=== PATIENT | female | born 1945 | race Caucasian/White ===

== ENCOUNTER → 2017-06-14 16:02 | Outpatient (CLI) | payer BC, MEDICARE, SELFPAY ==
--- NOTE | 2017-06-14 16:20 | RAD_ITS ---
STUDY: X-RAY CHEST REASON FOR EXAM: Female, 72 years old. Cough. TECHNIQUE: PA and lateral views of the chest. COMPARISON: Comparison is made with prior study dated November 23, 2016. FINDINGS: Stable 1.3 cm calcified granuloma in the superior segment of the right lower lobe. There is no demonstrated pleural abnormality. Normal size heart. Normal mediastinum and basilia. Normal visualized pulmonary arteries. There is atherosclerotic calcification of the aortic arch with tortuosity. There are degenerative changes of the visualized thoracic spine. [place] clip is seen overlying the left humeral head in keeping with prior rotator cuff surgery. There is no demonstrated abnormality of the visualized soft tissue structures of the upper abdomen. RAD/Chest PA and Lateral IMPRESSION: Stable examination. Electronically Signed: Garret Lao MD at 12:45 EDT Tel [phone], Service support ,
== END ==
PROVIDERS: Family Provider Family Medicine Geriatric Medicine; PCP Family Medicine Geriatric Medicine; Visit Provider Family Medicine Geriatric Medicine
DX: R05 Cough (principal); R68.83 Chills (without fever)
CPT/HCPCS: 71046; 87633

== ENCOUNTER → 2017-07-31 09:49 | Outpatient (CLI) | payer BC, MEDICARE, SELFPAY ==
--- NOTE | 2017-07-31 09:54 | ECHOD_ITS ---
Reason For Study: MITRAL INSUFFICENCY Procedure This was a 2D Doppler, Color Flow transthoracic echocardiogram. Contrast injection was performed. Exam performed in department. Left Ventricle Normal LV size. The estimated ejection fraction is 60 %. Left ventricular systolic function is normal. No evidence for diastolic dysfunction. No regional wall motion abnormalities noted. Right Ventricle Normal RV size. Normal systolic function. Atria Normal left atrium. Normal right atrium. Mitral Valve Mild diffuse mitral valve thickening. Mild (1+) eccentric mitral valve insufficiency. Tricuspid Valve Normal tricuspid valve. Mild to moderate (1-2+) tricuspid valve insufficiency. Pulmonary artery systolic pressure is 28 mmHg. Aortic Valve Trisinus/trileaflet aortic valve. Pulmonic Valve Normal pulmonic valve. Great Vessels Normal aortic root. The pulmonary artery is normal size. Normal inferior vena cava. Pericardium/Pleural No pericardial effusion. Medication 22 gauge I.V. with prn adaptor inserted into right arm. Diluted definity 3ml given slow IV push to enhance endocardial definition. MMode/2D Measurements & Calculations LVIDd: 5.0 cm IVSd: 0.81 cm Ao root diam: 3.0 cm LVIDs: 3.5 cm LVPWd: 0.90 cm FS: 30.6 % LAV(MOD-bp): 56.1 ml LVAd ap4: 29.4 cm2 SV(MOD-sp4): 65.5 ml LAV(MOD-bp) Indexed: 32.2 ml/m2 EDV(MOD-sp4): 93.8 ml LAV(MOD-sp2): 61.4 ml EDV(sp4-el): 94.2 ml LAV(MOD-sp4): 50.9 ml LVAs ap4: 14.3 cm2 ESV(MOD-sp4): 28.4 ml ESV(sp4-el): 28.4 ml EF(MOD-sp4): 69.7 % EF(sp4-el): 69.9 % SV(sp4-el): 65.8 ml LA A4 area: 19.7 cm2 RA A4 area: 14.6 cm2 Doppler Measurements & Calculations MV E max kane: 70.4 cm/sec Lat Peak E' Kane: 8.7 cm/sec Med Peak E' Kane: 6.3 cm/sec MV A max kane: 61.8 cm/sec E/E' lat: 8.1 E/E' med: 11.2 MV E/A: 1.1 Ao V2 max: 129.1 cm/sec LV V1 max: 109.8 cm/sec PA V2 max: 77.9 cm/sec Ao max P.7 mmHg LV V1 max P.8 mmHg TR max kane: 252.5 cm/sec TR max P.5 mmHg Interpretation Summary Normal LV size. The estimated ejection fraction is 60 %. Left ventricular systolic function is normal. No evidence for diastolic dysfunction. Mild (1+) eccentric mitral valve insufficiency. Mild to moderate (1-2+) tricuspid valve insufficiency. Contrast injection was performed. Ordering Physician: Nolberto Leblanc Referring Physician: TATI RETANA CHI Performed By: Ernestina Ledezma, ERIKA, RVT
== END ==
PROVIDERS: Family Provider Family Medicine Geriatric Medicine; PCP Family Medicine Geriatric Medicine; Visit Provider Internal Medicine Cardiovascular Disease
DX: I34.0 Nonrheumatic mitral (valve) insufficiency (principal)
CPT/HCPCS: 93306; Q9957; A4216; C8929

== ENCOUNTER → 2017-08-17 16:42 | Outpatient (CLI) | payer BC, MEDICARE, SELFPAY ==
--- NOTE | 2017-08-17 16:42 | DT_ITS ---
This patient was seen during an EMR downtime August 14, 2017 - August 21, 2017. This patient may have a combination of paper and electronic documentation or all paper documentation. All documentation is viewable within the e-chart portion of [facility] for each patient visit.
[2017-08-17 18:10] LABS: BNP,B-Type NATRIURETIC PEPTIDE 137.2 pg/mL (0-100)
== END ==
PROVIDERS: Family Provider Family Medicine Geriatric Medicine; PCP Family Medicine Geriatric Medicine; Visit Provider Internal Medicine Cardiovascular Disease
DX: I34.0 Nonrheumatic mitral (valve) insufficiency (principal); I42.6 Alcoholic cardiomyopathy; I25.10 Atherosclerotic heart disease of native coronary artery without angina pectoris
CPT/HCPCS: 36415; 83880

== ENCOUNTER → 2017-09-08 08:43 | Outpatient (CLI) | payer BC, MEDICARE, SELFPAY ==
[2017-09-08 12:25] LABS: Absolute Neutrophil Count 4.4 X10^3/uL (2.0-7.7); Basophil# 0.02 X10^3/uL; Basophil% 0.3 % (0-1); Eosinophil# 0.12 X10^3/uL; Eosinophils% 1.8 % (0-5); Hematocrit 41.5 % (37-47); Hemoglobin 13.7 g/dl (12.0-15.0); Lymphocyte % 22.7 % (19-41); Mean Corpuscular Hgb 29.9 pg (27.0-32.0); Mean Corpuscular Volume 90.6 fL (81-99); Mean Platelet Vol. 10.4 fl (6.2-12.0); Monocyte# 0.55 X10^3/uL; Monocyte% 8.3 % (0-10); Neutrophil # 4.42 X10^3/uL (2.7-7.7); Neutrophil % 66.9 % (47-70); Platelet Count 288 K/mm3 (150-450); RBC Distribution Width CV 13.1 % (11.6-14.6); RBC Distribution Width SD 43.4 fl (35.1-43.9); Red Blood Count 4.58 M/mm3 (4.2-5.4); White Blood Count 6.6 K/mm3 (4.4-11.0)
[2017-09-08 12:29] LABS: POSITIVE COUNT NO; POSITIVE DIFFERENTIAL NO; POSITIVE MORPHOLOGY NO
[2017-09-08 12:52] LABS: AST(SGOT) 23 U/L (15-37); Alanine Aminotransfer ALT/SGPT 19 U/L (13-56); Albumin, Serum 3.4 g/dL (3.2-5.0); Alkaline Phosphatase 80 U/L (45-117); Anion Gap 5 (5-15); BUN 21 mg/dL (7-18); BUN/Creat Ratio 18.1 RATIO (10-20); Calcium,Total 9.3 mg/dL (8.5-10.1); Chloride 104 mmol/L (98-107); Creatinine, Serum 1.16 mg/dL (0.55-1.02); EST Glomerular Filtration Rate 49 mL/min (>60); Est Glom Filt Rate - Afr Amer 59 mL/min (>60); Globulin 3.4 g/dL (2.2-4.2); Glucose 116 mg/dL (74-106); Potassium 4.1 mmol/L (3.5-5.1); Protein, Total 6.8 g/dL (6.4-8.2); Sodium Level 141 mmol/L (136-145); Thyroid Stim Hormone (TSH) 1.08 uIU/mL (0.358-3.74)
== END ==
PROVIDERS: Family Provider Family Medicine Geriatric Medicine; PCP Family Medicine Geriatric Medicine; Visit Provider Family Medicine Geriatric Medicine
DX: E55.9 Vitamin D deficiency, unspecified (principal); I10 Essential (primary) hypertension
CPT/HCPCS: 36415; 80053; 82306; 84443; 85025

== ENCOUNTER → 2018-01-04 12:00 | Outpatient (CLI) | payer MEDICARE, SELFPAY ==
[2018-01-04 13:54] LABS: Absolute Lymphocyte Count 1.84 X10^3/ul (0.83-4.51); Absolute Neutrophil Count 4.6 X10^3/uL (2.0-7.7); Basophil# 0.02 X10^3/uL; Basophil% 0.3 % (0-1); Eosinophil# 0.15 X10^3/uL; Eosinophils% 2.1 % (0-5); Hematocrit 43.1 % (37-47); Hemoglobin 13.6 g/dl (12.0-15.0); Lymphocyte # 1.84 X10^3/ul (4.0); Lymphocyte % 25.2 % (19-41); Mean Corp Hgb Conc 31.6 g/gl (32-36); Mean Corpuscular Hgb 28.9 pg (27.0-32.0); Mean Corpuscular Volume 91.7 fL (81-99); Mean Platelet Vol. 10.4 fl (6.2-12.0); Monocyte# 0.66 X10^3/uL; Neutrophil # 4.62 X10^3/uL (2.7-7.7); Neutrophil % 63.3 % (47-70); POSITIVE COUNT NO; POSITIVE DIFFERENTIAL NO; POSITIVE MORPHOLOGY NO; Platelet Count 276 K/mm3 (150-450); RBC Distribution Width CV 12.5 % (11.6-14.6); RBC Distribution Width SD 42.3 fl (35.1-43.9); White Blood Count 7.3 K/mm3 (4.4-11.0)
[2018-01-04 14:11] LABS: Anion Gap 9 (5-15); BUN 22 mg/dL (7-18); BUN/Creat Ratio 18.5 RATIO (10-20); Calcium,Total 9.3 mg/dL (8.5-10.1); Chloride 100 mmol/L (98-107); Creatinine, Serum 1.19 mg/dL (0.55-1.02); EST Glomerular Filtration Rate 48 mL/min (>60); Est Glom Filt Rate - Afr Amer 58 mL/min (>60); Glucose 104 mg/dL (74-106); Potassium 3.9 mmol/L (3.5-5.1); Sodium Level 142 mmol/L (136-145)
== END ==
PROVIDERS: Family Provider Family Medicine Geriatric Medicine; PCP Family Medicine Geriatric Medicine; Visit Provider Family Medicine Geriatric Medicine
DX: I10 Essential (primary) hypertension (principal); N39.0 Urinary tract infection, site not specified
CPT/HCPCS: 36415; 80048; 85025; 87086; 87088

== ENCOUNTER → 2018-02-12 09:59 | Outpatient (CLI) | payer MEDICARE, SELFPAY ==
--- OUTSIDE RECORDS SUMMARY | 2018-04-07 15:04 | XMS RPT_ITS ---
:1945 Author Organization OHIP Support Name Relationship Address Phone [facility] Unavailable [phone] + [place] [address] KATE HURTADO Unavailable CENTER + [place] [address] [address] + [place] [address] [facility] Unavailable [address] + [place] [address] [address]ATE HURTADO [address] + [place] [address] [facility] Unavailable [address] + [place] [address] KATE HURTADO [address] + [place] [address] [facility] Unavailable [address] + [place] [address] KATE HURTADO [address] + [place] [address] [facility] Unavailable [address] + [place] [address] KATE HURTADO [address] + [place] [address] [facility] Unavailable [address] + [place] [address] KATE HURTADO [address] + [place] [address] [facility] Unavailable [address] + [place] [address] KATE HURTADO Un[address] + [place] [address] [facility] Unavailable [address] [facility] + [place] [address] BRYANT KATE Unavailable Unavailable Unavailable NALLELY HURTADOAN Unavailable Unavailable Unavailable BRYANT KATE Unavailable Unavailable Unavailable BRYANT, CARMITA Unavailable Unavailable Unavailable BRYANT KATE Unavailable [address] + [place] [address] [facility] Unavailable [address] [facility] [facility] + [place] [address] [address] KATE [address] + [place] [address] [facility] Unavailable [address] [facility] [facility] + [facility] [place] [address] BRYANT KATE [address] + [place] [address] [facility] Unavailable [address] + [place] [address] Care Team Providers Name Role Phone MAZIN, TATI-CHI Attending Unavailable MAZIN, TATI-CHI Referring Unavailable MAZIN, TATI-CHI Primary Care Unavailable PRINCE HADLEY Attending Unavailable MAZIN, TATI-CHI Referring Unavailable MAZIN, TATI-CHI Primary Care Unavailable Mazin, Tati Chi Attending Unavailable Mazin, Tati Chi Primary Care Unavailable Mazin, Tati Chi Attending Unavailable Mazin, Tati Chi Primary Care Unavailable Mazin, Tati Chi Attending Unavailable Mazin, Tati Chi Primary Care Unavailable Benji, Nolberto Attending Unavailable Benji, [place] Referring Unavailable Mazin, Tati Chi Primary Care Unavailable Benji, Nolberto Attending Unavailable Benji, [place] Referring Unavailable Mazin, Tati Chi Primary Care Unavailable Benji, [place] Attending Unavailable Benji, [place] Referring Unavailable Benji, Nolberto Attending Unavailable Mazin, Tati Chi Referring Unavailable Mazin, Tati Chi Primary Care Unavailable Mazin, Tati Chi Attending Unavailable Mazin, Tati Chi Primary Care Unavailable Stuart Dickey Attending Unavailable Mazin, Tati Chi Referring Unavailable Mazin, Tati Chi Primary Care Unavailable Mazin, Tati Chi Attending Unavailable Mazin, Tati Chi Primary Care Unavailable Mazin, Tati Chi Attending Unavailable Mazin, Tati Chi Referring Unavailable Mazin, Tati Chi Primary Care Unavailable PROBLEMS PROBLEMS DATE TYPE CONDITION / CODE ATTENDING STATUS SOURCE Unknown R68.83 - Chills (without Mazin, Tati Chi Active [facility] fever) / R68.83(ICD-10) [facility] Rep[facility] Unknown I10 - Essential (primary) Mazin, Tati Chi Active [facility] hypertension / Community I10(ICD-10) Hospital Repository Unknown N39.0 - Urinary tract Mazin, Tati Chi Active [facility] infection, site not Community specified / N39.0(ICD-10) Hospital Repository Unknown E55.9 - Vitamin D Mazin, Tati Chi Active [place] deficiency, unspecified / Community E55.9(ICD-10) Hospital Repository Unknown I34.0 - Nonrheumatic Benji, [place] Active [place] 8 mitral (valve) Community insufficiency / Hospital I34.0(ICD-10) Repository Unknown I25.10 - Atherosclerotic Benji, [place] Active [place] [address] [facility] Community coronary artery without Hospital angina pectoris / Repository I25.10(ICD-10) Unknown E78.00 - Pure Benji, [place] Active [facility] hypercholesterolemia, Community unspecified / Hospital E78.00(ICD-10) Repository Unknown E78.0 - Pure Benji, Nolberto Active [place] 8 hypercholesterolemia / Community E78.0(ICD-10) Hospital Repository Admitting Diffuse cystic mastopathy HADLEYPRINCE GARZA Active [place] [address] diagnosis of right breast / [facility] N60.11(ICD-10) [facility] Repository Admitting Encounter for screening MAZIN, TATI-CHI Active [facility] 8 diagnosis mammogram for malignant University neoplasm of breast / [facility] Z12.31(ICD-10) Center Repository Unknown R50.9 - Fever, Mazin, Tati Chi Active [place] 8 unspecified / Community R50.9(ICD-10) Hospital Repository Unknown Z13.89 - Encounter for Mazin, Tati Chi Active [facility] screening for other Community disorder / Z13.89(ICD-10) Hospital Repository PROCEDURES PROCEDURES No Procedure Records FoundRESULTS RESULTS Observed: 02/12/2018 Status: F Source: [place] RESPIRATORY PANEL 10:19 AM [facility] MOLECULAR REPOSITORY RP PANEL ADENOVIRUS Not Detected HUMAN METAPHNEUMO Not Detected INFLUENZA A Not Detected INFLUENZA A (SUBTYPE H1) Not Detected INFLUENZA A (SUBTYPE H3) Not Detected INFLUENZA B Not Detected PARAINFLUENZA 1 Not Detected PARAINFLUENZA 2 Not Detected PARAINFLUENZA 3 Not Detected PARAINFLUENZA 4 Not Detected RHINOVIRUS Not Detected RSV A Not Detected RSV B Not Detected NAAT METHOD Testing was performed using nucleic acid amplification Performed By: #### M100.638 #### [facility] [address] [place], [address] Observed: 01/04/2018 Status: F Source: [place] CULTURE, URINE 12:08 PM [facility] REPOSITORY Urine Culture Below infection level. ORGANISM 1: Mixed Gram Positive Organisms Astor Count 1000-10,000 Performed By: #### M100.0650 #### [facility] [address] [facility] [place], [address] CBC W/DIFF, AUTOMATED Collected: 01/04/2018 Status: F Source: [place] 12:02 PM [facility] REPOSITORY TYPE CODE TESTS RESULT OUT OF RANGE REFERENCE UNITS LAB L100.1000 4.4-11.0 K/mm3 Normal WBC 7.3 LAB L100.1200 4.2-5.4 M/mm3 Normal RBC 4.70 LAB L100.1300 12.0-15.0 g/dl Normal HGB 13.6 LAB L100.1400 37-47 % Normal HCT 43.1 LAB L100.1500 81-99 fL Normal MCV 91.7 LAB L100.1600 27.0-32.0 pg Normal MCH 28.9 LAB L100.1700 32-36 g/gl Low MCHC 31.6 LAB L100.1810 11.6-14.6 % Normal RDW CV 12.5 LAB L100.1820 35.1-43.9 fl Normal RDW SD 42.3 LAB L100.1900 150-450 K/mm3 Normal PLT 276 LAB L100.2000 6.2-12.0 fl Normal MPV 10.4 LAB L100.2100 47-70 % Normal NEUT% 63.3 LAB L100.2200 19-41 % Normal LY% 25.2 LAB L100.2300 0-10 % Normal MONO% 9.0 LAB L100.2400 0-5 % Normal EO% 2.1 LAB L100.2500 0-1 % Normal BASO% 0.3 LAB L100.2550 0.0-0.9 % Normal IM GRAN % 0.100 Result Comment: IG% - Immature Granulocytes (promyelocytes, myelocytes and metamyelocytes) > 1% indicates that a LEFT SHIFT is Present. LAB L100.2620 2.0-7.7 X10 3/uL Normal Absolute Neut 4.6 LAB L100.2720 0.83-4.51 X10 3/ul Normal Absolute Lymph 1.84 Performed By: #### L100.0100 #### [facility] [address] [place], [address] BASIC METABOLIC Collected: 01/04/2018 Status: F Source: [place] PROFILE (BMP) 12:02 PM [facility] REPOSITORY TYPE CODE TESTS RESULT OUT OF RANGE REFERENCE UNITS LAB L501.0100 74-106 mg/dL Normal GLU 104 Result Comment: Fasting Glucose result from 100 to 125 mg/dL suggests IMPAIRED HOMEOSTASIS per A.D.A. criteria. Please note revised GLUCOSE reference range effective 2017. LAB L501.1000 7-18 mg/dL High BUN 22 LAB L501.1100 0.55-1.02 mg/dL High CREAT,SERUM 1.19 Result Comment: The validity of the calculated GFR AND GFRAA in patients over 70 years has not been determined. Clinical correlation is essential. LAB L501.1110 >60 mL/min Low EST GFR 48 Result Comment: Non- GFR Calc LAB L501.1115 >60 mL/min Low EST GFR - AA 58 Result Comment: GFR Calc LAB L501.1300 10-20 RATIO Normal BUN/CRE 18.5 LAB L501.2200 8.5-10.1 mg/dL CA Normal 9.3 LAB L501.5300 136-145 mmol/L NA Normal 142 LAB L501.5600 3.5-5.1 mmol/L K Normal 3.9 LAB L501.5900 98-107 mmol/L CL Normal 100 LAB L501.6100 21.0-32.0 mmol/L High CO2 33.0 LAB L501.6200 5-15 Normal GAP 9 Performed By: #### L500.2500 #### [facility] [address] [facility] [place], [place], [id number] CBC W/DIFF, AUTOMATED Collected: 09/08/2017 Status: F Source: [place] 11:10 AM [facility] REPOSITORY TYPE CODE TESTS RESULT OUT OF RANGE REFERENCE UNITS LAB L100.1000 4.4-11.0 K/mm3 Normal WBC 6.6 LAB L100.1200 4.2-5.4 M/mm3 Normal RBC 4.58 LAB L100.1300 12.0-15.0 g/dl Normal HGB 13.7 LAB L100.1400 37-47 % Normal HCT 41.5 LAB L100.1500 81-99 fL Normal MCV 90.6 LAB L100.1600 27.0-32.0 pg Normal MCH 29.9 LAB L100.1700 32-36 g/gl Normal MCHC 33.0 LAB L100.1810 11.6-14.6 % Normal RDW CV 13.1 LAB L100.1820 35.1-43.9 fl Normal RDW SD 43.4 LAB L100.1900 150-450 K/mm3 Normal PLT 288 LAB L100.2000 6.2-12.0 fl Normal MPV 10.4 LAB L100.2100 47-70 % Normal NEUT% 66.9 LAB L100.2200 19-41 % Normal LY% 22.7 LAB L100.2300 0-10 % Normal MONO% 8.3 LAB L100.2400 0-5 % Normal EO% 1.8 LAB L100.2500 0-1 % Normal BASO% 0.3 LAB L100.2550 0.0-0.9 % Normal IM GRAN % 0.000 Result Comment: IG% - Immature Granulocytes (promyelocytes, myelocytes and metamyelocytes) > 1% indicates that a LEFT SHIFT is Present. LAB L100.2620 2.0-7.7 X10 3/uL Normal Absolute Neut 4.4 LAB L100.2720 0.83-4.51 X10 3/ul Normal Absolute Lymph 1.50 Performed By: #### L100.0100 #### [facility] [address] [place], [address] VITAMIN D,25 HYDROXY Collected: 09/08/2017 Status: F Source: [place] 11:10 AM [facility] REPOSITORY TYPE CODE TESTS RESULT OUT OF RANGE REFERENCE UNITS LAB L506.1000 29.95-100.01 ng/mL Normal Vitamin D 33.0 25-OH Result Comment: Vitamin D 25(OH) Status Range Deficiency <20 ng/mL (50nmol/L) Insuffciency 20 - 30 ng/mL (50 - 75 nmol/L) Sufficiency 30 - 100 ng/mL (75 - 250 nmol/L) Toxicity >100 ng/mL (>250 nmol/L) Performed By: #### L506.1000 #### [facility] [address] [place], [address] COMPREHENSIVE METABOLIC Collected: 09/08/2017 Status: F Source: [place] [facility] 11:10 AM [facility] REPOSITORY TYPE CODE TESTS RESULT OUT OF RANGE REFERENCE UNITS LAB L501.0100 74-106 mg/dL High GLU 116 Result Comment: Fasting Glucose result from 100 to 125 mg/dL suggests IMPAIRED HOMEOSTASIS per A.D.A. criteria. Please note revised GLUCOSE reference range effective 2017. LAB L501.1000 7-18 mg/dL High BUN 21 LAB L501.1100 0.55-1.02 mg/dL High CREAT,SERUM 1.16 Result Comment: The validity of the calculated GFR AND GFRAA in patients over 70 years has not been determined. Clinical correlation is essential. LAB L501.1110 >60 mL/min Low EST GFR 49 Result Comment: Non- GFR Calc LAB L501.1115 >60 mL/min Low EST GFR - AA 59 Result Comment: GFR Calc LAB L501.1300 10-20 RATIO Normal BUN/CRE 18.1 LAB L501.1500 6.4-8.2 g/dL T Normal PROT 6.8 LAB L501.1800 3.2-5.0 g/dL Normal ALB 3.4 LAB L501.1950 2.2-4.2 g/dL Normal GLOB 3.4 LAB L501.2000 0.9-2.4 RATIO Normal A/G 1.0 LAB L501.2200 8.5-10.1 mg/dL CA Normal 9.3 LAB L501.4100 15-37 U/L Normal AST 23 LAB L501.4305 45-117 U/L Normal ALK P 80 LAB L501.4405 13-56 U/L Normal ALT 19 LAB L501.4600 0.20-1.00 mg/dL T Normal BILI 0.50 LAB L501.5300 136-145 mmol/L NA Normal 141 LAB L501.5600 3.5-5.1 mmol/L K Normal 4.1 LAB L501.5900 98-107 mmol/L CL Normal 104 LAB L501.6100 21.0-32.0 mmol/L Normal CO2 32.0 LAB L501.6200 5-15 Normal GAP 5 Performed By: #### L500.4050, L501.9520 #### [facility] [address] [place], [address] THYROID STIM HORMONE Collected: 09/08/2017 Status: F Source: [place] (TSH) 11:10 AM [facility] REPOSITORY TYPE CODE TESTS RESULT OUT OF RANGE REFERENCE UNITS LAB 01.9520 0.358-3.74 uIU/mL Normal TSH 1.08 Performed By: #### L500.4050, L501.9520 #### [facility] [address] [place], [address] DOWNTIME REPORT Observed: 08/31/2017 Status: F Source: [place] 2:14 PM [facility] REPOSITORY [facility] Medical Records Department [address] [place] [address] Downtime Report MR#: [id number] Acct: [id number] Name: CARMITA HURTADO Rep #: [id number] : 1945 72 From: Mike Mcqueen PCP: Mazin WONG,Tati Chi Status: REG CLI This patient was seen during an EMR downtime August 14, 2017 - August 21, 2017. This patient may have a combination of paper and electronic documentation or all paper documentation. All documentation is viewable within the e-chart portion of [employer] for each patient visit. CARDIOLOGY VISIT Observed: 08/24/2017 Status: F Source: [place] REPORT 8:35 PM [facility] REPOSITORY [facility] [address] [place] [address] [address] [place] [address] OFFICE VISIT Date of Service: 08/17/17 MR#: [id number] Acct: [id number] Name: CARMITA HURTADO Rep #: [id number] : 1945 Provider: Nolberto Leblanc MD Age/Sex: 72/F Location: [facility] Status: Signed HPI HPI Chief Complaint: Follow-up visits. Details: CARMITA HURTADO, is a 72 F who presents to the office today for a follow-up visit. She is a lady with a history of mono known mitral valve disease who complains of fatigue shortness of breath with activity palpitations occasional pounding in her chest and pain below her shoulder blades. You do remember that as part of her evaluation she underwent a pharmacologic myocardial perfusion stress test but did not demonstrate any evidence of ischemia and echocardiogram was performed which demonstrated preserved ejection fraction of 65% stage II diastolic dysfunction and what appeared to be moderately severe mitral regurgitation. She went on to have a DARLINE which demonstrated mild mitral regurgitation but with multiple jets. Cardiac catheterization performed demonstrated no obstructive coronary disease. She was referred to the [facility] but it was felt that her mitral regurgitation was at most 2-3+ and she did not require surgical therapy medical therapy was recommended. She was placed on medication and has done well since then. More recently she underwent an echocardiographic evaluation which once again demonstrated ejection fraction of 60% normal left ventricular dimensions mild diffuse mitral valve thickening with mild 1+ mitral regurgitation. Her pulmonary systolic pressure was estimated to be 28 mmHg. She has not had any classic angina symptoms and has not had any evidence of atrial fibrillation. Her physical exam today demonstrates clear lung lees regular rate and rhythm is soft 1/6 systolic murmur noted left sternal border and no pedal edema. Her blood pressure is noted to be mildly elevated. Intake Intake Visit Reasons: 6 M FU; discuss echo results (we r/s from 08-10) Allergies sumatriptan [From Imitrex] Allergy (Verified 01/27/14 20:23) Other sumatriptan succinate [From Imitrex] Allergy (Verified 01/27/14 20:23) Other prednisone Adverse Reaction (Verified 11/25/16 15:05) Unknown Medications Albuterol IH (ProAir) [Proair Hfa (SP)Vent Pts] 1 - 2 puff INHALATION Q6H PRN PRN 11/25/16 [History Confirmed 11/25/16] Aspirin E.C. [Ecotrin] 81 mg PO DAILY@0800 11/25/16 [History Confirmed 11/25/16] Duloxetine HCl 90 mg PO BID 11/25/16 [History Confirmed 11/25/16] Lorazepam [Ativan] 0.5 mg PO DAILY PRN PRN 11/25/16 [History Confirmed 11/25/16] Montelukast Sodium [Singulair] 10 mg PO DAILY 11/25/16 [History Confirmed 11/25/16] Primidone [Mysoline] 25 mg PO DAILY 11/25/16 [History Confirmed 11/25/16] Propranolol HCl [Inderal Xl (Beta Ade)] 120 mg PO PRN PRN 11/25/16 [History Confirmed 11/25/16] Rosuvastatin Calcium [Crestor] 40 mg PO QHS 11/25/16 [History Confirmed 11/25/16] traZODone [Desyrel] 100 mg PO DAILY 11/25/16 [History Confirmed 11/25/16] furosemide 40 mg tablet 40 mg PO DAILY #90 tab 03/21/17 [Rx] losartan 25 mg tablet 25 mg PO DAILY #90 tab 03/21/17 [Rx] PFSH Social History Smoking Status: Never smoker ROS Const Const: Positive for fatigue and weakness; negative for headache(s) Eyes Eyes: Negative for blind spots, loss of peripheral vision, transient loss of vision, blurry vision, change in vision, double vision, floaters, tunnel vision or other ENT ENT: Negative for headache(s), dizziness, hearing loss, tinnitus, Nosebleed/epistaxis, post nasal drip, lip swelling, tongue swelling, bleeding gums, hoarseness, neck pain, dry mouth or other Cardio Chest Pain: No Resp Respiratory: Positive for SOB with activity GI GI: Negative nausea, vomiting, heartburn, constipation, belching, bloating, cramping, vomiting blood/hematemesis, bright, red blood in stools, black,tarry stools, loose stools, Difficulty Swallowing or other : Negative for hematuria, frequent nighttime urination/ nocturia, erectile dysfunction or abnormal vaginal bleeding Skin Skin: Negative redness, non-healing lesions, rash, unusual bruising, skin ulcer, wounds, jaundice or other Neuro Neuro: Positive for weakness; negative for blurry vision, double vision, headache(s) or dizziness Endo Endo: Positive for fatigue Allergy Allergy/Immunology: Negative for lip swelling, Negative for tongue swelling, Negative for rash Cardiology Exam Const Appearance: cooperative, healthy appearing, well developed, well groomed and no acute distress Nutritional Appearance: well nourished and average body habitus Orientation: alert, awake and oriented x3 Head Head: normal to inspection, normocephalic and atraumatic Ears: hearing grossly normal bilaterally and external ears normal Nose: external nose normal, nasal mucous membranes and turbinates normal, nares normal, septum normal, no nasal discharge Face and Sinus: face symmetric Mouth: oral mucosae normal, tongue normal, oropharynx normal and moist mucous membranes Teeth and gingiva: dentition normal Throat: posterior oropharynx normal, tonsils normal and uvula midline Eyes General: appearance normal, both eyes and all related structures Eyelids: eyelids normal Conjunctivae: conjunctivae normal Pupils: PERRL, normal by confrontation and accommodation normal EOM: EOM intact bilaterally Neck Neck: normal visual inspection, trachea midline and no JVD JVD: +5 Carotids: normal carotid upstroke and bounding pulses Chest Chest inspection: normal inspection of the chest, symmetric chest movement and normal respiratory effort Auscultation: Bilateral: Clear to Auscultation Cardio Palpation: normal PMI Rate: regular rate Rhythm: regular rhythm Heart sounds: S1 normal and S2 normal Murmur: Grade 1/6 GI GI: normal to inspection, soft, no hepatosplenomegaly and bowel sounds present Neuro General: alert, awake, oriented x3, no focal sensory deficit, gait normal and moves all extremities Skin Skin: no rashes or lesions noted Extremities Pulses: Normal: Right Femoral Pulse, Left Femoral Pulse, Right Dorsalis Pedis Pulse, Left Dorsalis Pedis Pulse, Right Posterior Tibial Pulse, Left Posterior Tibial Pulse, Right Radial Pulse, Left Radial Pulse Lower Extremity Edema: None: Bilateral Musculoskel Musculoskeletal: No joint tenderness Psych Psychological: normal affect Assessment AND Plan 1. Mitral valve insufficiency, unspecified etiology I34.0 Plan She does other movements appear to have mild mitral regurgitation with no evidence of hypertension. At this time I will continue to recommend medical therapy. She does have some nebulous symptoms which are difficult to explain and I will suggest that we make some changes to her medical therapy. I will suggest discontinuing her propranolol and increasing her Lasix to 40 mg twice a day and putting her on Toprol-XL 50 mg once a day. Losartan 50 mg a day will also be added. I will like to see her again in 3 months and reassess her response to the above. If she has had no improvement in her symptoms I may recommend referring her to the [facility] for another opinion regarding the above. 2. Essential hypertension I10 Plan Her blood pressure remains uncontrolled. The losartan has been added to her regimen as well as Toprol and her beta-ade propranolol has been discontinued. Remember she was on this for an intention tremor. Hopefully the Toprol should be able to take care of the above. 3. Coronary artery disease involving [place] coronary artery of [place] heart without angina pectoris I25.10 Plan She does have mild coronary artery disease but I do not think that her symptoms suggestive of angina at this time she will continue with secondary risk factor modification with aspirin and lipid-lowering therapy. 4. Pure hypercholesterolemia E78.00; E78.0 Plan She will remain on high intensity statin. Appropriate lipid profiles will be obtained the appropriate time. Thank you for allowing me to participate in her care. Due to computer issues her past medical history as well as medications were not entered contemporaneously. Plan Detail Follow Up 3 Months (center lead consultant) Coding Level of Care Code Off vis,est,level 4 Diagnoses Mitral valve insufficiency, unspecified etiology I34.0 Cardiac valve disease etiology: etiology unspecified Essential hypertension I10 Hypertension type: essential hypertension Coronary artery disease involving [place] coronary artery of [place] heart without angina pectoris I25.10 Coronary Disease-Associated Artery/Lesion type: [place] artery [place] vs. transplanted heart: [place] heart Associated angina: without angina Pure hypercholesterolemia E78.00; E78.0 Hyperlipidemia type: pure hypercholesterolemia Coding Level of Care Code Off vis,est,level 4 Diagnoses Mitral valve insufficiency, unspecified etiology I34.0 Cardiac valve disease etiology: etiology unspecified Essential hypertension I10 Hypertension type: essential hypertension Coronary artery disease involving [place] coronary artery of [place] heart without angina pectoris I25.10 Coronary Disease-Associated Artery/Lesion type: [place] artery [place] vs. transplanted heart: [place] heart Associated angina: without angina Pure hypercholesterolemia E78.00; E78.0 Hyperlipidemia type: pure hypercholesterolemia 08/24/172034 <Electronically signed by Nolberto Leblanc MD> Date Nolberto Leblanc MD Cosigner Signature: Date (if applicable) CC: Tati Retana MD BNP,B-TYPE NATRIURETIC Collected: 08/17/2017 Status: F Source: [place] 4:45 PM [facility] REPOSITORY TYPE CODE TESTS RESULT OUT OF RANGE REFERENCE UNITS LAB L503.6620 0-100 pg/mL High B-TYPE 137.2 IVONNE PEP Performed By: #### L503.6620 #### [facility] [address] [place], [address] ECHOCARDIOGRAM COMPLETE Observed: 07/31/2017 Status: F Source: [place] 9:11 PM [facility] REPOSITORY [facility] Cardiovascular Services [address] [place] [address] Echo Complete W/ Contrast 07/31/17 1007 MR#: [id number] Acct: [id number] Name: CARMITA HURTADO Rep #: [id number] : 1945 72 From: Nolberto Leblanc MD Attending Dr: Nolberto Leblanc MD Status: REG CLI Ordering Dr: Nolberto Leblanc MD Date: 07/31/17 Location: [facility] Sex: F C Admitted: Reason For Study: MITRAL INSUFFICENCY Procedure This was a 2D Doppler, Color Flow transthoracic echocardiogram. Contrast injection was performed. Exam performed in department. Left Ventricle Normal LV size. The estimated ejection fraction is 60 %. Left ventricular systolic function is normal. No evidence for diastolic dysfunction. No regional wall motion abnormalities noted. Right Ventricle Normal RV size. Normal systolic function. Atria Normal left atrium. Normal right atrium. Mitral Valve Mild diffuse mitral valve thickening. Mild (1+) eccentric mitral valve insufficiency. Tricuspid Valve Normal tricuspid valve. Mild to moderate (1-2+) tricuspid valve insufficiency. Pulmonary artery systolic pressure is 28 mmHg. Aortic Valve Trisinus/trileaflet aortic valve. Pulmonic Valve Normal pulmonic valve. Great Vessels Normal aortic root. The pulmonary artery is normal size. Normal inferior vena cava. Pericardium/Pleural No pericardial effusion. Medication 22 gauge I.V. with prn adaptor inserted into right arm. Diluted definity 3ml given slow IV push to enhance endocardial definition. MMode/2D Measurements AND Calculations LVIDd: 5.0 cm IVSd: 0.81 cm Ao root diam: 3.0 cm LVIDs: 3.5 cm LVPWd: 0.90 cm FS: 30.6 % LAV(MOD-bp): 56.1 ml LVAd ap4: 29.4 cm2 SV(MOD-sp4): 65.5 ml LAV(MOD-bp) Indexed: 32.2 ml/m2 EDV(MOD-sp4): 93.8 ml LAV(MOD-sp2): 61.4 ml EDV(sp4-el): 94.2 ml LAV(MOD-sp4): 50.9 ml LVAs ap4: 14.3 cm2 ESV(MOD-sp4): 28.4 ml ESV(sp4-el): 28.4 ml EF(MOD-sp4): 69.7 % EF(sp4-el): 69.9 % SV(sp4-el): 65.8 ml LA A4 area: 19.7 cm2 RA A4 area: 14.6 cm2 Doppler Measurements AND Calculations MV E max kane: 70.4 cm/sec Lat Peak E' Kane: 8.7 cm/sec Med Peak E' Kane: 6.3 cm/sec MV A max kane: 61.8 cm/sec E/E' lat: 8.1 E/E' med: 11.2 MV E/A: 1.1 Ao V2 max: 129.1 cm/sec LV V1 max: 109.8 cm/sec PA V2 max: 77.9 cm/sec Ao max P.7 mmHg LV V1 max P.8 mmHg TR max kane: 252.5 cm/sec TR max P.5 mmHg Interpretation Summary Normal LV size. The estimated ejection fraction is 60 %. Left ventricular systolic function is normal. No evidence for diastolic dysfunction. Mild (1+) eccentric mitral valve insufficiency. Mild to moderate (1-2+) tricuspid valve insufficiency. Contrast injection was performed. Ordering Physician: Nolberto Leblanc Referring Physician: TATI RETANA CHI Performed By: Ernestina Ledezma RDCS, RVT 07/31/172110 Date Nolberto Leblanc MD CC: Nolberto Leblanc MD; Tati Retana MD Date Dictated: 07/31/17 1007 Date Transcribed: 07/31/172110 Education General Manager: Signed MAMMO SCREENING Observed: 06/22/2017 Status: F Source: [place] 1:26 PM [facility] REPOSITORY EXAM: MAMMO SCREENING BILATERAL, 06/22/2017 13:18 PM CLINICAL INDICATIONS: Screening COMPARISON: Compared to prior study dated 04/28/2016, 04/23/2015, 04/17/2014, 04/16/2013 TECHNIQUE: Bilateral digital MLO and CC views of the breasts were obtained. Computer aided detection was utilized. FINDINGS: The breasts have scattered areas of fibroglandular density. Bilateral benign appearing calcifications are noted. There are no suspicious masses, calcifications, or architectural distortions. Unchanged exam. IMPRESSION: No specific mammographic evidence of malignancy. BI-RADS: 2: Benign Recommendation: Routine mammography. Recommendation Laterality: Bilateral T PA AND LATERAL Observed: 06/14/2017 Status: F Source: [place] 4:10 PM [facility] REPOSITORY [facility] Imaging Services [address] [place] [address] Chest PA and Lateral MR#: [id number] Acct: [id number] Name: CARMITA HURTADO Rep #: [id number] : 1945 F 72 From: Garret Lao MD PCP: Tati Retana MD, Chi Status: REG CLI Study: Chest PA and Lateral Date of Exam: 06/14/17 Exam# [id number] Ordering Dr: Tati Retana MD STUDY: X-RAY CHEST REASON FOR EXAM: Female, 72 years old. Cough. TECHNIQUE: PA and lateral views of the chest. COMPARISON: Comparison is made with prior study dated November 23, 2016. FINDINGS: Stable 1.3 cm calcified granuloma in the superior segment of the right lower lobe. There is no demonstrated pleural abnormality. Normal size heart. Normal mediastinum and basilia. Normal visualized pulmonary arteries. There is atherosclerotic calcification of the aortic arch with tortuosity. There are degenerative changes of the visualized thoracic spine. [place] clip is seen overlying the left humeral head in keeping with prior rotator cuff surgery. There is no demonstrated abnormality of the visualized soft tissue structures of the upper abdomen. RAD/Chest PA and Lateral IMPRESSION: Stable examination. Electronically Signed: Garret Lao MD at 12:45 EDT Tel [phone], Service support , CC: Tati Retana MD Education General Manager: Signed Observed: 06/14/2017 Status: F Source: [place] RESPIRATORY PANEL 4:06 PM [facility] MOLECULAR REPOSITORY RP PANEL ADENOVIRUS Not Detected HUMAN METAPHNEUMO Not Detected INFLUENZA A Not Detected INFLUENZA A (SUBTYPE H1) Not Detected INFLUENZA A (SUBTYPE H3) Not Detected INFLUENZA B Not Detected PARAINFLUENZA 1 Not Detected PARAINFLUENZA 2 Not Detected PARAINFLUENZA 3 Not Detected PARAINFLUENZA 4 Not Detected RHINOVIRUS Not Detected RSV A Not Detected RSV B Not Detected NAAT METHOD Testing was performed using nucleic acid amplification Performed By: #### M100.638 #### [facility] [address] [place], [address] Observed: 04/06/2017 Status: F Source: [place] RESPIRATORY PANEL 3:44 PM [facility] MOLECULAR REPOSITORY RP PANEL ADENOVIRUS Not Detected HUMAN METAPHNEUMO Not Detected INFLUENZA A Not Detected INFLUENZA A (SUBTYPE H1) Not Detected INFLUENZA A (SUBTYPE H3) Not Detected INFLUENZA B Not Detected PARAINFLUENZA 1 Not Detected PARAINFLUENZA 2 Not Detected PARAINFLUENZA 3 Not Detected PARAINFLUENZA 4 Not Detected RHINOVIRUS Not Detected RSV A Not Detected RSV B Not Detected NAAT METHOD Testing was performed using nucleic acid amplification Performed By: #### M100.638 #### [facility] [address] [place], [address] VITAMIN D,25 HYDROXY Collected: 03/10/2017 Status: F Source: [place] 11:16 AM [facility] REPOSITORY TYPE CODE TESTS RESULT OUT OF RANGE REFERENCE UNITS LAB L506.1000 ng/mL Normal Vitamin D 33.1 25-OH Result Comment: Vitamin D 25(OH) Status Range Deficiency <20 ng/mL (50nmol/L) Insuffciency 20 - 30 ng/mL (50 - 75 nmol/L) Sufficiency 30 - 100 ng/mL (75 - 250 nmol/L) Toxicity >100 ng/mL (>250 nmol/L) Performed By: #### L506.1000 #### [facility] [address] [place], [address] COMPREHENSIVE METABOLIC Collected: 03/10/2017 Status: F Source: [place] [facility] 11:16 AM [facility] REPOSITORY TYPE CODE TESTS RESULT OUT OF RANGE REFERENCE UNITS LAB L501.0100 70-110 mg/dL High GLU 121 Result Comment: Fasting Glucose result from 110 to <126 mg/dL suggests IMPAIRED HOMEOSTASIS per A.D.A. criteria. LAB L501.1000 7-18 mg/dL High BUN 21 LAB L501.1100 0.55-1.02 mg/dL High CREAT,SERUM 1.12 Result Comment: The validity of the calculated GFR AND GFRAA in patients over 70 years has not been determined. Clinical correlation is essential. LAB L501.1110 >60 mL/min Low EST GFR 51 Result Comment: Non- GFR Calc LAB L501.1115 >60 mL/min Normal EST GFR - AA 62 Result Comment: GFR Calc LAB L501.1300 10-20 RATIO Normal BUN/CRE 18.8 LAB L501.1500 6.4-8.2 g/dL T Normal PROT 6.4 LAB L501.1800 3.4-5.0 g/dL Normal ALB 3.4 Result Comment: Please note revised Albumin AND Globulin reference range effective 2016. LAB L501.1950 2.2-4.2 g/dL Normal GLOB 3.0 LAB L501.2000 0.9-2.4 RATIO Normal A/G 1.1 LAB L501.2200 8.5-10.1 mg/dL Normal CA 8.7 LAB L501.4100 15-37 U/L Normal AST 21 LAB L501.4305 45-117 U/L Normal ALK P 93 LAB L501.4405 12-78 U/L Normal ALT 15 LAB L501.4600 0.20-1.00 mg/dL Normal T BILI 0.50 LAB L501.5300 136-145 mmol/L Normal NA 140 LAB L501.5600 3.5-5.1 mmol/L Normal K 4.0 LAB L501.5900 98-107 mmol/L Normal CL 102 LAB L501.6100 21.0-32.0 mmol/L Normal CO2 32.0 LAB L501.6200 5-15 Normal GAP 6 Performed By: #### L500.4050, L501.9520 #### [facility] [address] [place], [address] THYROID STIM HORMONE Collected: 03/10/2017 Status: F Source: [place] (TSH) 11:16 AM [facility] REPOSITORY TYPE CODE TESTS RESULT OUT OF RANGE REFERENCE UNITS LAB L501.9520 0.358-3.74 uIU/mL Normal TSH 1.40 Performed By: #### L500.4050, L501.9520 #### [facility] [address] [place], [address] CBC W/DIFF, AUTOMATED Collected: 03/10/2017 Status: F Source: [place] 11:16 AM [facility] REPOSITORY TYPE CODE TESTS RESULT OUT OF RANGE REFERENCE UNITS LAB L100.1000 4.4-11.0 K/mm3 Normal WBC 7.6 LAB L100.1200 4.2-5.4 M/mm3 Normal RBC 4.54 LAB L100.1300 12.0-15.0 g/dl Normal HGB 13.1 LAB L100.1400 37-47 % Normal HCT 40.5 LAB L100.1500 81-99 fL Normal MCV 89.2 LAB L100.1600 27.0-32.0 pg Normal MCH 28.9 LAB L100.1700 32-36 g/gl Normal MCHC 32.3 LAB L100.1810 11.6-14.6 % Normal RDW CV 13.0 LAB L100.1820 35.1-43.9 fl Normal RDW SD 41.8 LAB L100.1900 150-450 K/mm3 Normal PLT 266 LAB L100.2000 6.2-12.0 fl Normal MPV 10.3 LAB L100.2100 47-70 % Normal NEUT% 68.1 LAB L100.2200 19-41 % Normal LY% 22.1 LAB L100.2300 0-10 % Normal MONO% 7.1 LAB L100.2400 0-5 % Normal EO% 2.4 LAB L100.2500 0-1 % Normal BASO% 0.3 LAB L100.2550 0.0-0.9 % Normal IM GRAN % 0.000 Result Comment: IG% - Immature Granulocytes (promyelocytes, myelocytes and metamyelocytes) > 1% indicates that a LEFT SHIFT is Present. LAB L100.2620 2.0-7.7 X10 3/uL Normal Absolute Neut 5.2 LAB L100.2720 0.83-4.51 X10 3/ul Normal Absolute Lymph 1.69 Performed By: #### L100.0100 #### [facility] [address] [place], [address] HEPATITIS C ANTIBODIES Collected: 03/10/2017 Status: F Source: [place] 11:16 AM [facility] REPOSITORY TYPE CODE TESTS RESULT OUT OF RANGE REFERENCE UNITS LAB L3100.0650 0.0-0.9 s/co ratio Normal HEP C AB <0.1 Result Comment: Negative: < 0.8 Indeterminate: 0.8 - 0.9 Positive: > 0.9 The CDC recommends that a positive HCV antibody result be followed up with a HCV Nucleic Acid Amplification test (083846). Performed at: - [facility] [id number] Date Puller: Jim Seay PhD, Phone: [phone] Performed By: #### L3100.0625 #### [facility] (refer to report for specific site) refer to report for address and phone number ALLERGIES ALLERGIES DATE TYPE / CODE NAME / CODE REACTION SEVERITY SOURCE 11/25/2016 Drug prednisone/[id number] Unknown Unknown [place] Allergy/416 164(RXNORM) Community 935683([facility] ED CT) Repository 01/27/2014 Drug sumatriptan Other Unknown [place] Allergy/416 succinate/[id number] Community 157480[facility] 01/27/2014 Drug sumatriptan/V37959 Other Unknown [place] Allergy/416 4044(RXNORM) Community 783879([facility] ED CT) Repository ENCOUNTERS ENCOUNTERS ADMIT/DISCHARGE ACCOUNT NUMBER ADMITTING ENCOUNTER LOCATION SOURCE CLASS 02/12/2018 [id number] Ambulatory [facility] ding:PSN Repository 01/04/2018 [id number] Ambulatory [facility] ding:POLAB3 Repository 09/25/2017/09/26/19 [id number] Ambulatory BMSBuilding: [place] [address] [facility] Repository 09/08/2017 [id number] Ambulatory [facility] ding:POLAB3 Repository 08/17/2017 [id number] Ambulatory [facility] ding:LAB Repository 08/17/2017/08/18/19 [id number] Ambulatory BMSBuilding: [place] [facility] Repository 07/31/2017 [id number] Ambulatory [facility] ding:[facility] Repository 07/31/2017 [id number] Ambulatory BMSBuilding: [place] [facility] Repository 06/22/2017 [id number] Ambulatory Building:[facility] Repository 06/22/2017 [id number] Ambulatory Building:[facility] Repository 06/14/2017 [id number] Ambulatory [facility] ding:PSN Repository 04/06/2017 [id number] Ambulatory [facility] ding:PSN Repository 03/10/2017 [id number] Ambulatory [facility] ding:POLAB3 Repository PAYERS PAYERS ENCOUNTER GUARANTOR PAYER SUBSCRIBER SOURCE 02/12/2018 CARMITA Mayi CAR[place]A [place] [id number] Insurance:MEDICARE JAMENDOB: [facility] [address] PART A BPolicy [id number] [place] Number: Repository [address]Gex: [phone] [id number] [phone] (HP) Date:2018-02-12 02/12/2018 Secondary NOT GIVENUNK [place] Insurance:SELF PAY [facility] Number: Effective Repository Date:2018-02-12 01/04/2018 CARMITA Primary CARMITA [place] [id number] N Insurance:MEDICARE MCMILLENDOB: Community [address] A [facility] [id number], [place] Number: Repository [address]Vbg: 330 [id number] [phone] (HP) Date:2018-01-04 01/04/2018 Secondary NOT GIVENUNK [place] Insurance:SELF PAY [facility] Number: Effective Repository Date:2018-01-04 09/25/2017 CARMITA Primary NOT GIVENUNK [place] [id number] N Insurance:SELF PAY [address], [place] Number: Effective Repository [address]Gae: (330) Date:2017-09-25 [phone] (HP) 09/08/2017 CARMITA Primary CARMITA [place] [id number] N Insurance:ANTHEMPolic MCMILLENDOB: Community [address] y Number: [id number] [id number] Repository [address]Dqe: (330) Date:3320-32-49EJ [phone] () [address] [place] [address]TH: 09/08/2017 Secondary CARMITA [place] Insurance:MEDICARE MCMILLENDOB: Community PART A [facility] [id number] Hospital Number: Repository [id number] Date:2017-09-08 09/08/2017 Tertiary NOT GIVENUNK [place] Insurance:SELF PAY [facility] Number: Effective Repository Date:2017-09-08 08/17/2017 CARMITA Primary CARMITAROCHELLE [place] [id number] Insurance:ANTHEMPolic MCMILLENDOB: Community [address] y Number: [id number] [id number] Repository [address]Ejl: (330) Date:6722-78-59KO [phone] () [address]URJKTCU, [place] [address]TN: 08/17/2017 Secondary CARMITA [place] Insurance:MEDICARE MCMILLENDOB: Community PART A olic [id number] Hospital Number: Repository [id number] Date:2017-08-17 08/17/2017 Tertiary NOT GIVENUNK [place] Insurance:SELF PAY [facility] Number: Effective Repository Date:2017-08-17 08/17/2017 CARMITA Primary CARMITA [place] [id number] N Insurance:ANTHEMPolic MCMILLENDOB: Community [address] y Number: [id number] [id number] Repository [address]Ojg: (330) Date:1438-37-17UT [phone] () [address]ATQRW, [place] [address]BH: 08/17/2017 Secondary CARMITA [place] Insurance:MEDICARE MCMILLENDOB: Community PART A [facility] [id number] Hospital Number: Repository [id number] Date:2017-02-21 08/17/2017 Tertiary NOT GIVENUNK [place] Insurance:SELF PAY [facility] Number: Effective Repository Date:2017-07-12 07/31/2017 CARMITA Primary CARMITA [place] [id number] N Insurance:ANTHEMPolic MCMILLENDOB: Community [address] y Number: [id number] [id number] Repository [address]Qah: (330) Date:0027-02-62EK [phone] () [address]846[address]NQEFFEL, [place] [address]KE: 07/31/2017 Secondary CARMITA [place] Insurance:MEDICARE MCMILLENDOB: Community PART A [facility] [id number] Hospital Number: Repository [id number] Date:2017-02-07 07/31/2017 Tertiary NOT GIVENUNK [place] Insurance:SELF PAY [facility] Number: Effective Repository Date:2017-02-07 07/31/2017 CARMITA Primary CARMITA [place] [id number] Insurance:ANTHEMPolic [facility] Community [address] y Number: [id number] [id number] Repository [address]Nnp: (330) Date:6313-38-21CX [phone] () [address]72[address]QDQBLKC, [place] [address]YO: 07/31/2017 Secondary CARMITAROCHELLE [place] Insurance:MEDICARE [facility] [id number] Hospital Number: Repository [id number] Date:2017-02-07 07/31/2017 Tertiary NOT GIVENUNK [place] Insurance:SELF PAY [facility]: Effective Repository Date:2017-07-31 06/22/2017 [facility]:ANTHEM O [facility]: [place] [id number] BOX PPO POSPolicy Number: [id number] [id number] [address] [place] [address], [place] [address]Rjr: (330) Date:6193-58-54Qmtr [place] [address]Fvv: Repository [phone] Name:MANAGED CARE ()Tel: [phone] ([phone] () 06/22/2017 Secondary [facility] Insurance:MEDICARE A [facility] Number: [id number] [id number] [address] [place] [address], Center Date:7598-03-60Jpcw [place] [address]Nbj: Repository Name:CARE () 06/22/2017 [facility] Insurance:ANTHEM HMO [facility]: [place] [id number] BOX PPO POSPolicy Number: [id number] [id number] [address] [place] [address], [place] [address]Dsa: (330) Date:6301-72-96Stil [place] [address]Vxd: Repository [phone] Name:MANAGED CARE ()Tel: [phone] () 06/22/2017 Secondary CARMITA [facility] Insurance:MEDICARE A MCMILLENDOB: University AND BPolicy Number: [id number] Bay Park Hospital [id number] [address] [place] [address] Date:2619-34-21Wyfq [place] [address]Dtv: Repository Name:CARE () 06/14/2017 CARMITA Primary CARMITA [place] [id number] Insurance:ANTHEMPolic MCMILLENDOB: Community [address] y Number: [id number] [id number] Repository [address]Zyz: (330) Date:0475-44-73OG [phone] () 638[address]USEICBG, [place] [address]CU: 06/14/2017 Secondary CARMITA [place] Insurance:MEDICARE MCMILLENDOB: Community PART A [facility] [id number] Hospital Number: Repository [id number] Date:2017-06-14 06/14/2017 Tertiary NOT GIVENUNK [place] Insurance:SELF PAY [facility] Number: Effective Repository Date:2017-06-14 04/06/2017 CARMITA Primary CARMITA [place] [id number] N Insurance:MEDICARE MCMILLENDOB: Community [address] A [facility] [id number] Number: Repository [address]Enx: 330 [id number] [phone] () Date:2017-03-13 04/06/2017 Secondary NOT GIVENUNK [place] Insurance:SELF PAY [facility] Number: Effective Repository Date:2017-04-06 03/10/2017 Carm[place] Primary Carmita [place] [id number] Insurance:MEDICAL McmillenDOB: Community [address] St[address] MUTUAL [facility] [id number] Number: Repository [address]Nqd: 330 [id number] [phone] () Date:1202-23-30MT [address] [address]UO: 03/10/2017 Secondary NOT GIVENUNK [place] Insurance:SELF PAY [facility] Number: Effective Repository Date:2017-03-10
== END ==
PROVIDERS: Family Provider Family Medicine Geriatric Medicine; PCP Family Medicine Geriatric Medicine; Referring Provider Family Medicine Geriatric Medicine; Visit Provider Family Medicine Geriatric Medicine
DX: R68.83 Chills (without fever) (principal)
CPT/HCPCS: 87633

== ENCOUNTER → 2018-03-23 11:54 | Outpatient (CLI) | payer MEDICARE, SELFPAY ==
[2018-03-23 12:48] LABS: Absolute Lymphocyte Count 1.99 X10^3/ul (0.83-4.51); Absolute Neutrophil Count 3.6 X10^3/uL (2.0-7.7); Basophil# 0.03 X10^3/uL; Basophil% 0.5 % (0-1); Eosinophil# 0.14 X10^3/uL; Eosinophils% 2.2 % (0-5); Hematocrit 43.5 % (37-47); Hemoglobin 13.7 g/dl (12.0-15.0); Lymphocyte # 1.99 X10^3/ul (4.0); Lymphocyte % 31.5 % (19-41); Mean Corp Hgb Conc 31.5 g/gl (32-36); Mean Corpuscular Hgb 28.4 pg (27.0-32.0); Mean Corpuscular Volume 90.2 fL (81-99); Mean Platelet Vol. 10.1 fl (6.2-12.0); Monocyte# 0.53 X10^3/uL; Monocyte% 8.4 % (0-10); Neutrophil # 3.62 X10^3/uL (2.7-7.7); Neutrophil % 57.2 % (47-70); Platelet Count 320 K/mm3 (150-450); RBC Distribution Width CV 12.6 % (11.6-14.6); RBC Distribution Width SD 41.3 fl (35.1-43.9); Red Blood Count 4.82 M/mm3 (4.2-5.4); White Blood Count 6.3 K/mm3 (4.4-11.0)
[2018-03-23 12:50] LABS: POSITIVE COUNT NO; POSITIVE DIFFERENTIAL NO; POSITIVE MORPHOLOGY NO
[2018-03-23 13:18] LABS: ALB/GLOB Ratio 1.1 RATIO (0.9-2.4); AST(SGOT) 19 U/L (15-37); Alanine Aminotransfer ALT/SGPT 18 U/L (13-56); Albumin, Serum 3.5 g/dL (3.2-5.0); Alkaline Phosphatase 103 U/L (45-117); Anion Gap 7 (5-15); BUN 27 mg/dL (7-18); BUN/Creat Ratio 19.4 RATIO (10-20); Chloride 100 mmol/L (98-107); Creatinine, Serum 1.39 mg/dL (0.55-1.02); EST Glomerular Filtration Rate 40 mL/min (>60); Est Glom Filt Rate - Afr Amer 48 mL/min (>60); Globulin 3.1 g/dL (2.2-4.2); Glucose 106 mg/dL (74-106); Potassium 4.1 mmol/L (3.5-5.1); Protein, Total 6.6 g/dL (6.4-8.2); Sodium Level 140 mmol/L (136-145)
== END ==
PROVIDERS: Family Provider Family Medicine Geriatric Medicine; PCP Family Medicine Geriatric Medicine; Visit Provider Family Medicine Geriatric Medicine
DX: E55.9 Vitamin D deficiency, unspecified (principal); I10 Essential (primary) hypertension
CPT/HCPCS: 36415; 80053; 82306; 84443; 85025

== ENCOUNTER → 2018-05-17 14:10 | Outpatient (CLI) | payer MEDICARE, BC, SELFPAY ==
--- NOTE | 2018-05-17 14:19 | RAD_ITS ---
STUDY: X-RAY - RIGHT SHOULDER REASON FOR EXAM: Female, 73 years old. Pain. No recent injury. TECHNIQUE: 3 view(s) of the shoulder. COMPARISON: August 22, 2016. FINDINGS: There is mild degenerative arthrosis of the glenohumeral articulation. Normal acromioclavicular joint. Normal acromion. There is no acute fracture, dislocation or destructive osseous pathology. Normal humeral head and visualized proximal humerus. The soft tissue structures are unremarkable. Normal visualized pulmonary apex. RAD/Shoulder min 2 Views IMPRESSION: Mild degenerative changes shoulder without acute abnormality or interval change. Electronically Signed: Geovany Bradford DO at 23:19 EST Tel [phone], Service support ,
== END ==
PROVIDERS: Family Provider Family Medicine Geriatric Medicine; PCP Family Medicine Geriatric Medicine; Referring Provider Family Medicine Geriatric Medicine; Visit Provider Family Medicine Geriatric Medicine
DX: M25.511 Pain in right shoulder (principal)
CPT/HCPCS: 73030

== ENCOUNTER 2018-06-11 19:52 | Emergency (ER) | payer MEDICARE, BC, SELFPAY ==
[2018-06-11 19:53] VITALS: BP 125/71; PULSE 68; RESP 16; TEMP 36.2; O2SAT 95; BMI 24.8
--- NOTE | 2018-06-11 20:08 | RAD_ITS ---
STUDY: X-RAY - LEFT RADIUS AND ULNA REASON FOR EXAM: Female, 73 years old. Pain TECHNIQUE: 2 view(s) of the forearm. COMPARISON: None. FINDINGS: There is mild soft tissue swelling. There is a nondisplaced fracture through the distal end of the radius. Normal visualized ulna. RAD/Forearm 2 Views IMPRESSION: Distal radial fracture. Electronically Signed: Jayden Guerra DO at 20:27 EDT Tel [phone], Service support ,
--- NOTE | 2018-06-11 20:08 | RAD_ITS ---
STUDY: X-RAY - LEFT WRIST REASON FOR EXAM: Female, 73 years old. Pain, swelling TECHNIQUE: 3 view(s) of the wrist were obtained. COMPARISON: None. FINDINGS: Normal visualized distal ulna. There is a fracture line through the distal end of the radius. Normal radiocarpal articulation. Normal distal radioulnar articulation. Normal carpal bones. Normal carpal articulations. Normal carpometacarpal articulation of the thumb. Normal second through fifth carpometacarpal articulations. Normal visualized metacarpal bones. Soft tissue edema at the wrist. RAD/Wrist min 3 Views IMPRESSION: Distal radial fracture. Electronically Signed: Jayden Guerra DO at 20:39 EDT Tel [phone], Service support ,
--- NOTE | 2018-06-11 20:29 | ED.VISSUMM ---
- ER Visit Summary Date of Service: 06/11/18 Chief Complaint: Left wrist injury History of Present Illness: The patient is a 73 F who is right-handed presents to the emergency department left wrist injury. The patient was with her horse. The horse jerked when she was holding the [place] and twisted her arm. She states that her wrist bent down. Since then, she had increasing pain. She denies any numbness or tingling. She denies other injury. She is otherwise been in her normal state of health. She has not on anticoagulants. Physical Examination: Exam relatively unremarkable. Patient does have tenderness palpation over the dorsum of the wrist. Pulses are normal. Compartments are soft. Neurovascularly intact. Test Results: [] Emergency Department Course and Treatment: Plain films were obtained of the wrist and forearm. The patient does have a nondisplaced fracture through the distal radius. Her pulses were normal. Her compartments are soft. She was placed in an AP Ortho-Glass splint. She will be given analgesics and outpatient orthopedic follow-up. She is comfortable with this plan of care. Treatment Plan: [] Disposition: Discharge Impression: 1. Closed left distal radius fracture 2. Splint by ED physician This note was generated with Everbridge dictation software. It may contain incorrect words, spelling, and punctuation that were not noted in review of the chart prior to signing ED Disposition - Plan for ED Patient: Instructions: ED Fx Colles Wrist No Redu Requ Prescriptions: Oxycodone HCl/Acetaminophen [Percocet 5/325] 1 tab PO Q6H PRN PRN 3 Days #12 tab PRN Reason: Pain Referrals: Jose Alberto Jon DO [STAFF PHYSICIAN] -
[2018-06-11 21:36] VITALS: BP 129/73; PULSE 62; O2SAT 95
== END 2018-06-11 21:46 | disposition home or self-care (01) ==
LOC: ED 20:17
PROVIDERS: Emergency Provider Emergency Medicine; Family Provider Family Medicine Geriatric Medicine; PCP Family Medicine Geriatric Medicine
DX: S52.502A Unspecified fracture of the lower end of left radius, initial encounter for closed fracture (principal); X50.1XXA Overexertion from prolonged static or awkward postures, initial encounter; Y93.89 Activity, other specified; Y92.9 Unspecified place or not applicable; I11.0 Hypertensive heart disease with heart failure; I50.9 Heart failure, unspecified; Z79.82 Long term (current) use of aspirin; Z79.899 Other long term (current) drug therapy
CPT/HCPCS: 29125; 73090; 73110; 99283

== ENCOUNTER → 2018-06-20 14:56 | Outpatient (CLI) | payer MEDICARE, BC, SELFPAY ==
[2018-06-15 07:49] VITALS: BMI 24.8
--- NOTE | 2018-06-20 14:57 | RAD_ITS ---
STUDY: X-RAY - LEFT WRIST REASON FOR EXAM: Fracture follow-up. TECHNIQUE: 3 view(s) of the wrist were obtained. COMPARISON: Radiographs 06/11/17. FINDINGS: There is a nondisplaced transverse intra-articular fracture of the distal radius. Normal radiocarpal articulation. Normal distal radioulnar articulation. Normal carpal bones. Normal carpal articulations. Normal carpometacarpal articulation of the thumb. Normal second through fifth carpometacarpal articulations. Normal visualized metacarpal bones. There is an overlying cast. RAD/Wrist min 3 Views IMPRESSION: No significant change of distal radial fracture. Electronically Signed: Kody Fisher MD at 15:48 EDT Tel , Service support ,
== END ==
PROVIDERS: Family Provider Family Medicine Geriatric Medicine; PCP Family Medicine Geriatric Medicine; Referring Provider Orthopaedic Surgery; Visit Provider Orthopaedic Surgery
DX: S52.572A Other intraarticular fracture of lower end of left radius, initial encounter for closed fracture (principal)
CPT/HCPCS: 73110

== ENCOUNTER → 2018-06-27 08:04 | Outpatient (CLI) | payer MEDICARE, BC, SELFPAY ==
[2018-06-20 15:10] VITALS: BMI 24.8
--- NOTE | 2018-06-27 08:06 | RAD_ITS ---
STUDY: X-RAY - LEFT WRIST REASON FOR EXAM: Fracture follow-up. TECHNIQUE: 3 view(s) of the wrist were obtained. COMPARISON: Radiographs 06/20/2018 and 06/11/2018. FINDINGS: There is a nondisplaced transverse fracture of the distal radius. Normal radiocarpal articulation. Normal distal radioulnar articulation. Normal carpal bones. Normal carpal articulations. Normal carpometacarpal articulation of the thumb. Normal second through fifth carpometacarpal articulations. Normal visualized metacarpal bones. There is an overlying cast. RAD/Wrist min 3 Views IMPRESSION: No significant change of distal radial fracture. Electronically Signed: Kody Fisher MD at 14:33 EDT Tel , Service support ,
== END ==
PROVIDERS: Family Provider Family Medicine Geriatric Medicine; PCP Family Medicine Geriatric Medicine; Referring Provider Orthopaedic Surgery; Visit Provider Orthopaedic Surgery
DX: S52.502A Unspecified fracture of the lower end of left radius, initial encounter for closed fracture (principal)
CPT/HCPCS: 73110

== ENCOUNTER → 2018-07-25 15:35 | Outpatient (CLI) | payer MEDICARE, BC, SELFPAY ==
[2018-07-25 08:02] VITALS: BMI 24.8
--- NOTE | 2018-07-25 15:36 | RAD_ITS ---
STUDY: X-RAY - LEFT WRIST REASON FOR EXAM: Female, 73 years old. Injury. TECHNIQUE: 3 view(s) of the wrist were obtained. COMPARISON: June 27, 2018. FINDINGS: There is been removal of the semiopaque cast seen on the prior study. There is interval healing of the nondisplaced fracture of the radial styloid with without loss of alignment.. There is degenerative arthrosis of the radiocarpal articulation. Normal distal radioulnar articulation. Normal carpal bones. There is degenerative arthrosis of the carpal articulations. There is degenerative arthrosis of the carpometacarpal articulation of the thumb. Normal second through fifth carpometacarpal articulations. Normal visualized metacarpal bones. There is minimal soft tissue swelling about the wrist. RAD/Wrist min 3 Views IMPRESSION: 1. Healing fracture of the radial styloid. 2. Mild degenerative changes of the wrist Electronically Signed: Geovany Bradford DO at 22:23 EDT Tel [phone], Service support ,
== END ==
PROVIDERS: Family Provider Family Medicine Geriatric Medicine; PCP Family Medicine Geriatric Medicine; Visit Provider Orthopaedic Surgery
DX: S52.502A Unspecified fracture of the lower end of left radius, initial encounter for closed fracture (principal)
CPT/HCPCS: 73110

== ENCOUNTER → 2018-09-20 10:11 | Outpatient (CLI) | payer MEDICARE, BC, SELFPAY ==
[2018-07-25 08:02] VITALS: BMI 24.8
--- NOTE | 2018-09-20 10:59 | RAD_ITS ---
STUDY: X-RAY - RIGHT ANKLE REASON FOR EXAM: Female, 73 years old. Stepped on by horse 10 days ago, swelling and bruising ankle. TECHNIQUE: 4 view(s) of the ankle. COMPARISON: None. FINDINGS: There is a superficial soft tissue edema of the distal lower leg and stranding the ankle circumferentially, periarticular. No fracture or dislocation. RAD/Ankle min 3 Views IMPRESSION: Superficial soft tissue edema. No acute osseous injury. Electronically Signed: Wing Graham MD at 8:24 EDT Tel , Service support ,
--- NOTE | 2018-09-20 11:11 | RAD_ITS ---
STUDY: X-RAY - RIGHT FOOT CLINICAL: Female, 73 years old. Stepped on by horse 10 days ago, swelling and bruising of the ankle. TECHNIQUE: 3 view(s) of the foot. COMPARISON: None. FINDINGS: Mild dorsal foot soft tissue swelling. Ankle circumferential periarticular soft tissue swelling. Osseous structures of the foot and ankle are intact, normally articulated, normally mineralized, preserved arch. RAD/Foot min 3 Views IMPRESSION: Soft tissue swelling with no acute osseous injury. Electronically Signed: Wing Graham MD at 8:24 EDT Tel , Service support ,
[2018-09-20 12:27] LABS: Absolute Lymphocyte Count 1.77 X10^3/ul (0.83-4.51); Absolute Neutrophil Count 3.1 X10^3/uL (2.0-7.7); Basophil# 0.02 X10^3/uL; Basophil% 0.3 % (0-1); Eosinophils% 3.5 % (0-5); Hematocrit 37.7 % (37-47); Hemoglobin 12.3 g/dl (12.0-15.0); Lymphocyte # 1.77 X10^3/ul (4.0); Lymphocyte % 30.6 % (19-41); Mean Corp Hgb Conc 32.6 g/gl (32-36); Mean Corpuscular Hgb 28.9 pg (27.0-32.0); Mean Corpuscular Volume 88.7 fL (81-99); Mean Platelet Vol. 10.2 fl (6.2-12.0); Monocyte# 0.66 X10^3/uL; Monocyte% 11.4 % (0-10); Neutrophil # 3.13 X10^3/uL (2.7-7.7); Neutrophil % 54.2 % (47-70); Platelet Count 242 K/mm3 (150-450); RBC Distribution Width CV 12.2 % (11.6-14.6); RBC Distribution Width SD 38.9 fl (35.1-43.9); Red Blood Count 4.25 M/mm3 (4.2-5.4); White Blood Count 5.8 K/mm3 (4.4-11.0)
[2018-09-20 12:39] LABS: POSITIVE COUNT NO; POSITIVE DIFFERENTIAL NO; POSITIVE MORPHOLOGY NO
[2018-09-20 12:40] LABS: Vitamin D,25 Hydroxy 36.1 ng/mL (29.95-100.01)
[2018-09-20 12:41] LABS: ALB/GLOB Ratio 1.3 RATIO (0.9-2.4); AST(SGOT) 17 U/L (15-37); Alanine Aminotransfer ALT/SGPT 16 U/L (13-56); Albumin, Serum 3.4 g/dL (3.2-5.0); Alkaline Phosphatase 97 U/L (45-117); Anion Gap 8 (5-15); BUN 32 mg/dL (7-18); BUN/Creat Ratio 23.9 RATIO (10-20); Calcium,Total 8.2 mg/dL (8.5-10.1); Chloride 101 mmol/L (98-107); Creatinine, Serum 1.34 mg/dL (0.55-1.02); EST Glomerular Filtration Rate 41 mL/min (>60); Est Glom Filt Rate - Afr Amer 50 mL/min (>60); Globulin 2.6 g/dL (2.2-4.2); Glucose 98 mg/dL (74-106); Potassium 3.2 mmol/L (3.5-5.1); Sodium Level 140 mmol/L (136-145); Thyroid Stim Hormone (TSH) 1.91 uIU/mL (0.358-3.74)
== END ==
LOC: POLAB3 10:13 → RAD 10:58
PROVIDERS: Family Provider Family Medicine Geriatric Medicine; PCP Family Medicine Geriatric Medicine; Referring Provider Family Medicine Geriatric Medicine; Visit Provider Family Medicine Geriatric Medicine
DX: E55.9 Vitamin D deficiency, unspecified (principal); I10 Essential (primary) hypertension; M79.609 Pain in unspecified limb
CPT/HCPCS: 36415; 73610; 73630; 80053; 82306; 84443; 85025

== ENCOUNTER → 2019-03-27 13:14 | Outpatient (CLI) | payer MEDICARE, SELFPAY ==
[2018-07-25 08:02] VITALS: BMI 24.8
[2019-03-27 13:35] LABS: Absolute Lymphocyte Count 1.89 X10^3/uL (0.83-4.51); Absolute Neutrophil Count 3.8 X10^3/uL (2.0-7.7); Basophil# 0.04 X10^3/uL; Basophil% 0.6 % (0-1); Eosinophil# 0.21 X10^3/uL; Eosinophils% 3.2 % (0-5); Hematocrit 41.2 % (37-47); Hemoglobin 13.1 g/dL (12.0-15.0); Lymphocyte # 1.89 X10^3/ul (4.0); Lymphocyte % 28.8 % (19-41); Mean Corp Hgb Conc 31.8 g/dL (32-36); Mean Corpuscular Hgb 28.5 pg (27.0-32.0); Mean Corpuscular Volume 89.6 fL (81-99); Mean Platelet Vol. 10.4 fl (6.2-12.0); Monocyte% 9.1 % (0-10); NRBC Flagged by Analyzer 0 % (0-5); Neutrophil # 3.81 X10^3/uL (2.7-7.7); Neutrophil % 58.1 % (47-70); Platelet Count 270 K/mm3 (150-450); RBC Distribution Width CV 12.3 % (11.6-14.6); RBC Distribution Width SD 40.6 fl (35.1-43.9); White Blood Count 6.6 K/mm3 (4.4-11.0)
[2019-03-27 13:53] LABS: Vitamin D,25 Hydroxy 38.6 ng/mL (29.95-100.01)
[2019-03-27 13:58] LABS: ALB/GLOB Ratio 1.2 RATIO (0.9-2.4); AST(SGOT) 22 U/L (15-37); Alanine Aminotransfer ALT/SGPT 17 U/L (13-56); Albumin, Serum 3.5 g/dL (3.2-5.0); Alkaline Phosphatase 91 U/L (45-117); Anion Gap 2 (5-15); BUN 28 mg/dL (7-18); Calcium,Total 9.3 mg/dL (8.5-10.1); Chloride 106 mmol/L (98-107); Creatinine, Serum 1.27 mg/dL (0.55-1.02); EST Glomerular Filtration Rate 44 mL/min (>60); Est Glom Filt Rate - Afr Amer 53 mL/min (>60); Globulin 2.8 g/dL (2.2-4.2); Glucose 117 mg/dL (74-106); Potassium 4.1 mmol/L (3.5-5.1); Protein, Total 6.3 g/dL (6.4-8.2); Sodium Level 143 mmol/L (136-145); Thyroid Stim Hormone (TSH) 2.22 uIU/mL (0.358-3.74)
== END ==
PROVIDERS: Family Provider Family Medicine Geriatric Medicine; PCP Family Medicine Geriatric Medicine; Visit Provider Family Medicine Geriatric Medicine
DX: E55.9 Vitamin D deficiency, unspecified (principal); I10 Essential (primary) hypertension
CPT/HCPCS: 36415; 80053; 82306; 84443; 85025

== ENCOUNTER 2019-05-24 15:44 | Emergency (ER) | payer MEDICARE, SELFPAY ==
[2018-07-25 08:02] VITALS: BMI 24.8
[2019-05-24 15:46] VITALS: BP 129/82; PULSE 76; RESP 14; RESP 17; TEMP 36.4; O2SAT 100; BMI 24.7
--- NOTE | 2019-05-24 15:55 | ED.DCSUM_ITS ---
History of Present Illness Chief Complaint: Upper Extremity Injury Informant: Patient Onset: Today Mechanism/Context: Blunt Injury Quality of Pain: Dull, Aching Location: Right wrist Current Severity: Mild Maximum Severity: Moderate Worsened by: Movement and palpation Relieved by: Rest Associated Symptoms: Negative for: Parasthesias, Weakness, Loss of function, Inability to ambulate, Loss of consciousness Narrative: Patient is a 74-year-old [id number] woman who was injured caring for a friend's horse. She presents because of pain that she localizes over the right wrist. She denies shoulder or elbow pain. She denies pain in her hand or fingers. She denies paresthesia, anesthesia or motor aches. She is not on an anticoagulant. There is no other injury other than foot. She states the horse stepped on her foot. She has no pain and does not concerned. Tetanus Immunization: 5-10 years Prior similar symptoms: No Recent Illness/Hospitalization: No - Past Medical History (1) Hypertension Status: Chronic (2) Hypercholesterolemia Status: Chronic Past Medical History - Allergies and Home Meds Allergies/Adverse Reactions: Allergies sumatriptan [From Imitrex] Allergy (Verified 05/24/19 15:45) Other sumatriptan succinate [From Imitrex] Allergy (Verified 05/24/19 15:45) Other prednisone Adverse Reaction (Verified 05/24/19 15:45) Unknown Primary Care Physician: Bolivar Chaudhari Chi, MD [Primary Care Provider] - Prior records reviewed: No Surgical History: noncontributory Lives: Alone Smoking Status: Never smoker Drugs: None Review of Systems Musculoskeletal: Reports: Swelling, Extremity Pain. Denies: Myalgias, Arthralgias, Neck pain, Back pain Skin: Denies: Rash, Wounds Neurological: Denies: Weakness, Parasthesia, Numbness Hematologic: Denies: Easy bruising, Easy bleeding Physical Exam Vital Signs/Narrative: Vital Signs Temp Pulse Resp BP Pulse Ox 05/24/19 15:46 97.5 F L 76 17 129/82 H 100 Inital Vital Signs reviewed: Yes General: Well nourished, Well developed Head: Normocephalic, Atraumatic Eyes: Perrl, EOMI. Negative for: Pale conjunctiva, Scleral icterus Cardiovascular: Regular rate, Regular rhythm Respiratory: No distress Extremeties: There is pain elevation of the distal radius and ulna and soft tissue swelling noted. There is no pain the patient over the anatomical snu ffbox. There is no pain the patient with axillary of the thumb. There is no pain the patient over the phalanges or metacarpal carpal bones. There is no pain the patient over the carpal bones either. There is no pain the patient over the lateral or medial epicondyle. Is no pain the patient olecranon process or over the radial head. There is no pain the patient with the proximal humerus, AC joint or clavicle. Radial pulses palpable. Axillary, median, radial and ulnar function intact. Skin: Normal color, Trauma Neurological: Alert, Oriented x3, Cranial nerves II-XII grossly intact, Normal Strength, Normal Sensation, Normal Gait Psychological: Normal affect Diagnostic/Tx/Re-eval Chest X-Ray - ED: Read by ED Physician, - - 3 view x-ray of the right wrist was interpreted by me as positive for transverse distal extra-articular radial fracture with no displacement or angulation. - Medical Decision Making X-ray of the wrist was obtained to evaluate for contusion versus fracture. Procedures - Upper Extremity Splints Upper Extremity Splint: Plaster - Short arm AP plaster splint Splint Fabrication: Fabricated Location: Right ED Disposition - Plan for ED Patient: Disposition: Home or Assisted Living Diagnosis: Distal radius fracture, right Instructions: FRACTURE, Wrist [General] Referrals: Bolivar Chaudhari Chi, MD [Primary Care Provider] - Jose Alberto Jon DO [STAFF PHYSICIAN] - 5-7 Days Additional Instructions: 1. Keep splint clean and dry 2. Keep wrist elevated above nose as much as possible next several days 3. Apply ice 6-8 times a day 20 to 30 minutes per application
--- NOTE | 2019-05-24 16:03 | RAD_ITS ---
STUDY: X-RAY - RIGHT WRIST REASON FOR EXAM: Female, 74 years old. PINNED BY HORSE; PAIN IN WRIST TECHNIQUE: 3 view(s) of the wrist were obtained. COMPARISON: None FINDINGS: The nondisplaced fracture of the distal radius with soft tissue edema. Normal radiocarpal articulation. Normal distal radioulnar articulation. Normal carpal bones. Normal carpal articulations. Normal carpometacarpal articulation of the thumb. Normal second through fifth carpometacarpal articulations. Normal visualized metacarpal bones. RAD/Wrist min 3 Views IMPRESSION: Nondisplaced fracture of the distal radius. Electronically Signed: Jessica López MD at 16:22 EDT Tel , Service support ,
== END 2019-05-24 18:00 | disposition home or self-care (01) ==
PROVIDERS: Emergency Provider Emergency Medicine; PCP Family Medicine Geriatric Medicine
DX: S52.551A Other extraarticular fracture of lower end of right radius, initial encounter for closed fracture (principal); W55.19XA Other contact with horse, initial encounter; Y93.89 Activity, other specified; Y92.9 Unspecified place or not applicable; I10 Essential (primary) hypertension; E78.00 Pure hypercholesterolemia, unspecified; Z79.82 Long term (current) use of aspirin; Z79.899 Other long term (current) drug therapy
CPT/HCPCS: 29125; 73110; 99283

== ENCOUNTER → 2019-05-31 11:15 | Outpatient (CLI) | payer MEDICARE, SELFPAY ==
[2019-05-24 15:46] VITALS: BMI 24.7
--- NOTE | 2019-05-31 11:16 | RAD_ITS ---
STUDY: X-RAY - RIGHT WRIST REASON FOR EXAM: Female, 74 years old. FRACTURE RE CHECK TECHNIQUE: 3 view(s) of the wrist were obtained. COMPARISON: Comparison is made with prior study dated May 24, 2019. FINDINGS: Satisfactory reduction of the distal radial fracture. There is good anatomic alignment. Normal radiocarpal articulation. Normal distal radioulnar articulation. Normal carpal bones. Normal carpal articulations. Normal carpometacarpal articulation of the thumb. Normal second through fifth carpometacarpal articulations. Normal visualized metacarpal bones. The soft tissue structures are unremarkable. RAD/Wrist min 3 Views IMPRESSION: Satisfactory reduction of the distal radial fracture. Alignment is maintained. Electronically Signed: Garret Lao, at 12:24 EDT , Service support ,
== END ==
PROVIDERS: PCP Family Medicine Geriatric Medicine; Referring Provider Orthopaedic Surgery; Visit Provider Orthopaedic Surgery
DX: S52.91XA Unspecified fracture of right forearm, initial encounter for closed fracture (principal)
CPT/HCPCS: 73110

== ENCOUNTER → 2019-06-14 08:56 | Outpatient (CLI) | payer MEDICARE, SELFPAY ==
[2019-05-31 11:27] VITALS: BMI 24.7
--- NOTE | 2019-06-14 08:58 | RAD_ITS ---
STUDY: X-RAY - RIGHT WRIST REASON FOR EXAM: Female, 74 years old. RECHECK RIGHT WRIST. TECHNIQUE: 3 view(s) of the wrist were obtained. COMPARISON: Comparison is made with prior examination of May 31, 2019. FINDINGS: There is healing of the distal radial fracture. The alignment is maintained. Normal radiocarpal articulation. Normal distal radioulnar articulation. Normal carpal bones. Normal carpal articulations. Normal carpometacarpal articulation of the thumb. Normal second through fifth carpometacarpal articulations. Normal visualized metacarpal bones. The soft tissue structures are unremarkable. RAD/Wrist min 3 Views IMPRESSION: Healing of the distal radial fracture. Electronically Signed: Garret Lao, at 9:30 EDT , Service support ,
== END ==
PROVIDERS: PCP Family Medicine Geriatric Medicine; Referring Provider Orthopaedic Surgery; Visit Provider Orthopaedic Surgery
DX: S52.501A Unspecified fracture of the lower end of right radius, initial encounter for closed fracture (principal)
CPT/HCPCS: 73110

== ENCOUNTER → 2019-07-05 11:29 | Outpatient (CLI) | payer MEDICARE, SELFPAY ==
[2019-07-05 08:07] VITALS: BMI 24.7
--- NOTE | 2019-07-05 11:35 | RAD_ITS ---
STUDY: X-RAY - RIGHT WRIST REASON FOR EXAM: Female, 74 years old. FX F/U, CAST REMOVED TECHNIQUE: 3 view(s) of the wrist were obtained. COMPARISON: Comparison is made with prior study dated June 14, 2019. FINDINGS: There is evidence of a healed distal radial fracture. Normal radiocarpal articulation. Normal distal radioulnar articulation. Normal carpal bones. Normal carpal articulations. Normal carpometacarpal articulation of the thumb. Normal second through fifth carpometacarpal articulations. Normal visualized metacarpal bones. Mild degree of soft tissue swelling. RAD/Wrist min 3 Views IMPRESSION: Healed right distal radial fracture. Electronically Signed: Garret Lao, at 11:56 EDT , Service support ,
== END ==
LOC: HPRAD 11:30
PROVIDERS: PCP Family Medicine Geriatric Medicine; Referring Provider Orthopaedic Surgery; Visit Provider Orthopaedic Surgery
DX: S52.501A Unspecified fracture of the lower end of right radius, initial encounter for closed fracture (principal); X58.XXXA Exposure to other specified factors, initial encounter
CPT/HCPCS: 73110

== ENCOUNTER → 2019-10-11 11:48 | Outpatient (CLI) | payer MEDICARE, SELFPAY ==
[2019-07-05 08:07] VITALS: BMI 24.7
--- NOTE | 2019-10-11 12:32 | RAD_ITS ---
STUDY: X-RAY CHEST REASON FOR EXAM: Female, 74 years old. 28 LB WEIGHT LOSS IN 6 MONTHS -- SOME SOB TECHNIQUE: Frontal and lateral views of the chest. COMPARISON: 06/14/2017. FINDINGS: The lungs are clear and expanded. Stable 1 cm calcified granuloma of the mid right lung. There is no demonstrated pleural abnormality. Normal size heart. Normal mediastinum and basilia. Normal visualized pulmonary arteries. Normal visualized aortic arch and descending thoracic aorta. Normal visualized thoracic spine. Normal visualized ribs, clavicles, and shoulders. There is no demonstrated abnormality of the visualized soft tissue structures of the upper abdomen. RAD/Chest PA and Lateral IMPRESSION: No definite acute or significant abnormality seen. Electronically Signed: Ferdinand Blood MD at 18:55 EDT , Service support ,
[2019-10-11 13:11] LABS: Absolute Neutrophil Count 4.4 X10^3/uL (2.0-7.7); Basophil# 0.04 X10^3/uL; Basophil% 0.6 % (0-1); Eosinophil# 0.14 X10^3/uL; Eosinophils% 2.1 % (0-5); Hematocrit 39.9 % (37-47); Hemoglobin 12.6 g/dL (12.0-15.0); Lymphocyte % 21.4 % (19-41); Mean Corp Hgb Conc 31.6 g/dL (32-36); Mean Corpuscular Hgb 28.8 pg (27.0-32.0); Mean Corpuscular Volume 91.1 fL (81-99); Mean Platelet Vol. 10.4 fl (6.2-12.0); Monocyte# 0.58 X10^3/uL; Monocyte% 8.9 % (0-10); NRBC Flagged by Analyzer 0 % (0-5); Neutrophil # 4.37 X10^3/uL (2.7-7.7); Neutrophil % 66.8 % (47-70); Platelet Count 263 K/mm3 (150-450); RBC Distribution Width CV 12.6 % (11.6-14.6); RBC Distribution Width SD 42.3 fl (35.1-43.9); Red Blood Count 4.38 M/mm3 (4.2-5.4); White Blood Count 6.5 K/mm3 (4.4-11.0)
[2019-10-11 14:35] LABS: Vitamin D,25 Hydroxy 61.6 ng/mL
[2019-10-11 14:41] LABS: ALB/GLOB Ratio 1.2 RATIO (0.9-2.4); AST(SGOT) 19 U/L (15-37); Alanine Aminotransfer ALT/SGPT 14 U/L (13-56); Albumin, Serum 3.3 g/dL (3.2-5.0); Alkaline Phosphatase 73 U/L (45-117); Anion Gap 3 (5-15); BUN 22 mg/dL (7-18); BUN/Creat Ratio 22.3 RATIO (10-20); Calcium,Total 9.1 mg/dL (8.5-10.1); Chloride 108 mmol/L (98-107); Creatinine, Serum 0.98 mg/dL (0.55-1.02); EST Glomerular Filtration Rate 59 mL/min (>60); Est Glom Filt Rate - Afr Amer 71 mL/min (>60); Globulin 2.8 g/dL (2.2-4.2); Glucose 98 mg/dL (74-106); Potassium 3.8 mmol/L (3.5-5.1); Protein, Total 6.1 g/dL (6.4-8.2); Sodium Level 143 mmol/L (136-145); Thyroid Stim Hormone (TSH) 1.78 uIU/mL (0.358-3.74)
== END ==
PROVIDERS: PCP Family Medicine Geriatric Medicine; Visit Provider Family Medicine Geriatric Medicine
DX: E55.9 Vitamin D deficiency, unspecified (principal); I10 Essential (primary) hypertension; R63.4 Abnormal weight loss
CPT/HCPCS: 36415; 71046; 80053; 82306; 84443; 85025

== ENCOUNTER → 2019-10-17 | Outpatient (CLI) | payer MEDICARE, SELFPAY ==
[2019-07-05 08:07] VITALS: BMI 24.7
== END | disposition home or self-care (01) ==
PROVIDERS: PCP Family Medicine Geriatric Medicine; Referring Provider Family Medicine Geriatric Medicine; Visit Provider Family Medicine Geriatric Medicine
DX: R63.4 Abnormal weight loss (principal)
CPT/HCPCS: 87506

== ENCOUNTER → 2020-02-19 13:04 | Outpatient (CLI) | payer MEDICARE, SELFPAY ==
[2020-02-12 14:16] VITALS: BMI 23.4
--- NOTE | 2020-02-19 13:14 | ECHOD_ITS ---
Reason For Study: DYSPNEA/SOB Procedure This was a 2D Doppler, Color Flow transthoracic echocardiogram. Exam performed in department. Left Ventricle Normal LV size. Left ventricular systolic function is normal. The estimated ejection fraction is 65 %. Stage 1 diastolic dysfunction. No regional wall motion abnormalities noted. Right Ventricle Normal RV size. Normal systolic function. Atria Normal left atrium. Normal right atrium. Mitral Valve Normal mitral valve. Mild (1+) eccentric mitral valve insufficiency. Tricuspid Valve Normal tricuspid valve. Mild tricuspid valve insufficiency. Pulmonary artery systolic pressure is 30 mmHg. Aortic Valve Normal aortic valve. Trisinus/trileaflet aortic valve. Pulmonic Valve Normal pulmonic valve. Great Vessels Normal aortic root. The pulmonary artery is normal size. Normal inferior vena cava. Pericardium/Pleural No pericardial effusion. MMode/2D Measurements & Calculations LVIDd: 4.3 cm IVSd: 1.3 cm Ao root diam: 3.3 cm LVIDs: 2.8 cm LVPWd: 1.2 cm RVDd: 3.1 cm FS: 33.6 % LAV(MOD-bp): 43.5 ml LVAd ap4: 24.1 cm2 SV(MOD-sp4): 41.6 ml LAV(MOD-bp) Indexed: 25.5 ml/m2 EDV(MOD-sp4): 70.0 ml LAV(MOD-sp2): 46.0 ml EDV(sp4-el): 71.5 ml LAV(MOD-sp4): 41.2 ml LVAs ap4: 13.9 cm2 ESV(MOD-sp4): 28.4 ml ESV(sp4-el): 27.5 ml EF(MOD-sp4): 59.4 % EF(sp4-el): 61.5 % SV(sp4-el): 44.0 ml LA A4 area: 16.3 cm2 LA dimension(2D): 3.7 cm RA A4 area: 12.4 cm2 Time Measurements MV dec time: 0.21 sec Doppler Measurements & Calculations MV E max kane: 75.2 cm/sec Lat Peak E' Kane: 6.4 cm/sec Med Peak E' Kane: 4.5 cm/sec MV A max kane: 75.9 cm/sec E/E' lat: 11.8 E/E' med: 16.8 MV E/A: 0.99 Ao V2 max: 114.9 cm/sec LV V1 max: 89.2 cm/sec PA V2 max: 68.2 cm/sec Ao max P.3 mmHg LV V1 max P.2 mmHg TR max kane: 249.0 cm/sec TR max P.0 mmHg Interpretation Summary Normal LV size. Left ventricular systolic function is normal. The estimated ejection fraction is 65 %. Pulmonary artery systolic pressure is 30 mmHg. Stage 1 diastolic dysfunction. Ordering Physician: Nolberto Leblanc Referring Physician: TATI RETANA Performed By: Arpita Fox RDCS
== END ==
PROVIDERS: PCP Family Medicine Geriatric Medicine; Referring Provider Internal Medicine Cardiovascular Disease; Visit Provider Internal Medicine Cardiovascular Disease
DX: R06.02 Shortness of breath (principal)
CPT/HCPCS: 93306

== ENCOUNTER → 2020-03-27 06:55 | Outpatient (CLI) | payer MEDICARE, SELFPAY ==
[2020-02-12 14:16] VITALS: BMI 23.4
--- NOTE | 2020-03-27 09:55 | STRESSREP ---
Stress Test Report Pharmacologic myocardial perfusion stress test. 74-year-old lady with a history of chest pain. Medications rosuvastatin metoprolol furosemide. Stress protocol: Resting EKG demonstrates normal sinus rhythm with a rate of 77 bpm normal intervals are noted resting blood pressure is 130 over 70 mmHg. 0.4 mg of regadenoson was infused per usual protocol followed by rapid intravenous saline flush injection continuous EKG monitoring was performed. The maximum heart rate attained was 100 bpm which was 67% of max impacted heart rate the maximum workload was 1 metabolic equivalent. At rest there were no ST or T wave changes noted to suggest abnormal flow reserve at peak infusion nonspecific ST-T wave changes were noted with no meet the criteria for abnormal flow reserve. The resting blood pressure was 130/70 mmHg and a final blood pressure 118/62 mmHg. Myocardial perfusion protocol. 11.1 mCi of technetium 99m sestamibi was injected at rest. 0.4 mg of regadenoson was infused per usual protocol. At peak infusion 33.6 mCi of technetium 99m sestamibi was injected stress images were obtained stress and rest images were reconstructed and compared in the short axis vertical long horizontal long axis. Gated images were also obtained Perfusion SPECT analysis: Review of the stress images demonstrate normal uptake of tracer noted in all areas of the myocardium the resting images similar demonstrate normal uptake of tracer noted in all areas of the myocardium. No reversibility is noted suggest ischemia no previous infarct is noted. Gated SPECT analysis: The gated ejection fraction is 78%. Conclusion: Normal pharmacologic myocardial perfusion stress test. Preserved ejection fraction.
== END ==
PROVIDERS: PCP Family Medicine Geriatric Medicine; Referring Provider Internal Medicine Cardiovascular Disease; Visit Provider Internal Medicine Cardiovascular Disease
DX: R07.9 Chest pain, unspecified (principal); I25.10 Atherosclerotic heart disease of native coronary artery without angina pectoris; I10 Essential (primary) hypertension; E78.00 Pure hypercholesterolemia, unspecified
CPT/HCPCS: 78452; 93017; A9500; A4216; J2785

== ENCOUNTER → 2020-03-29 | Outpatient (CLI) | payer MEDICARE, SELFPAY ==
[2020-03-29 13:06] VITALS: BMI 23.6
== END | disposition home or self-care (01) ==
PROVIDERS: PCP Family Medicine Geriatric Medicine; Referring Provider Physician Assistant Medical; Visit Provider Physician Assistant Medical
DX: U07.1 COVID-19 (principal)
CPT/HCPCS: 87635; U0005; U0003

== ENCOUNTER 2020-05-06 10:12 | Outpatient (RCR) | payer MEDICARE, SELFPAY ==
[2020-03-29 13:06] VITALS: BMI 23.6
== END 2020-05-06 23:59 ==
LOC: IMMUN 10:12
PROVIDERS: PCP Family Medicine Geriatric Medicine; Referring Provider Family Medicine; Visit Provider Family Medicine
DX: Z23 Encounter for immunization (principal)
CPT/HCPCS: 0011A; 0012A; 91301

== ENCOUNTER → 2020-05-12 15:16 | Outpatient (CLI) | payer MEDICARE, SELFPAY ==
[2020-05-12 14:18] VITALS: BMI 23.4
[2020-05-12 17:15] LABS: Anion Gap 5 (5-15); BUN 25 mg/dL (7-18); BUN/Creat Ratio 25.4 RATIO (10-20); Calcium,Total 9.6 mg/dL (8.5-10.1); Chloride 103 mmol/L (98-107); Creatinine, Serum 0.98 mg/dL (0.55-1.02); EST Glomerular Filtration Rate 59 mL/min (>60); Est Glom Filt Rate - Afr Amer 71 mL/min (>60); Glucose 77 mg/dL (74-106); Potassium 3.6 mmol/L (3.5-5.1); Sodium Level 142 mmol/L (136-145)
== END ==
PROVIDERS: PCP Family Medicine Geriatric Medicine; Referring Provider Physician Assistant Medical; Visit Provider Physician Assistant Medical
DX: I50.32 Chronic diastolic (congestive) heart failure (principal)
CPT/HCPCS: 36415; 80048

== ENCOUNTER → 2020-06-10 12:03 | Outpatient (CLI) | payer MEDICARE, SELFPAY ==
[2020-05-12 14:18] VITALS: BMI 23.4
[2020-06-10 16:41] LABS: Absolute Neutrophil Count 3.3 X10^3/uL (2.0-7.7); Basophil# 0.02 X10^3/uL; Basophil% 0.3 % (0-1); Eosinophils% 3.3 % (0-5); Hematocrit 44.3 % (37-47); Hemoglobin 14.1 g/dL (12.0-15.0); Lymphocyte % 34.7 % (19-41); Mean Corp Hgb Conc 31.8 g/dL (32-36); Mean Corpuscular Hgb 28.9 pg (27.0-32.0); Mean Corpuscular Volume 90.8 fL (81-99); Mean Platelet Vol. 10.4 fl (6.2-12.0); Monocyte# 0.47 X10^3/uL; Monocyte% 7.8 % (0-10); NRBC Flagged by Analyzer 0 % (0-5); Neutrophil # 3.26 X10^3/uL (2.7-7.7); Neutrophil % 53.7 % (47-70); Platelet Count 276 K/mm3 (150-450); RBC Distribution Width CV 12.6 % (11.6-14.6); RBC Distribution Width SD 41.7 fl (35.1-43.9); Red Blood Count 4.88 M/mm3 (4.2-5.4); White Blood Count 6.1 K/mm3 (4.4-11.0)
[2020-06-10 17:10] LABS: Vitamin D,25 Hydroxy 72.9 ng/mL
[2020-06-10 17:25] LABS: ALB/GLOB Ratio 1.2 RATIO (0.9-2.4); AST(SGOT) 26 U/L (15-37); Alanine Aminotransfer ALT/SGPT 21 U/L (13-56); Albumin, Serum 3.7 g/dL (3.2-5.0); Alkaline Phosphatase 93 U/L (45-117); Anion Gap 4 (5-15); BUN 27 mg/dL (7-18); BUN/Creat Ratio 25.7 RATIO (10-20); Chloride 104 mmol/L (98-107); Creatinine, Serum 1.05 mg/dL (0.55-1.02); EST Glomerular Filtration Rate 55 mL/min (>60); Est Glom Filt Rate - Afr Amer 66 mL/min (>60); Glucose 82 mg/dL (74-106); Potassium 4.1 mmol/L (3.5-5.1); Protein, Total 6.7 g/dL (6.4-8.2); Sodium Level 137 mmol/L (136-145); Thyroid Stim Hormone (TSH) 1.81 uIU/mL (0.358-3.74)
== END ==
PROVIDERS: PCP Family Medicine Geriatric Medicine; Visit Provider Family Medicine Geriatric Medicine
DX: I10 Essential (primary) hypertension (principal); E55.9 Vitamin D deficiency, unspecified
CPT/HCPCS: 36415; 80053; 82306; 84443; 85025

== ENCOUNTER → 2020-12-14 16:06 | Outpatient (CLI) | payer MEDICARE, SELFPAY ==
[2020-12-14 17:35] LABS: Absolute Lymphocyte Count 2.16 X10^3/uL (0.83-4.51); Absolute Neutrophil Count 4.2 X10^3/uL (2.0-7.7); Basophil# 0.03 X10^3/uL; Basophil% 0.4 % (0-1); Eosinophil# 0.14 X10^3/uL; Eosinophils% 1.9 % (0-5); Hematocrit 42.3 % (37-47); Hemoglobin 13.7 g/dL (12.0-15.0); Lymphocyte # 2.16 X10^3/ul (0.83-4.51); Mean Corp Hgb Conc 32.4 g/dL (32-36); Mean Corpuscular Hgb 29.4 pg (27.0-32.0); Mean Corpuscular Volume 90.8 fL (81-99); Mean Platelet Vol. 10.7 fl (6.2-12.0); Monocyte# 0.62 X10^3/uL; Monocyte% 8.6 % (0-10); NRBC Flagged by Analyzer 0 % (0-5); Neutrophil # 4.22 X10^3/uL (2.7-7.7); Neutrophil % 58.8 % (47-70); Platelet Count 284 K/mm3 (150-450); RBC Distribution Width CV 11.3 % (11.6-14.6); RBC Distribution Width SD 37.9 fl (35.1-43.9); Red Blood Count 4.66 M/mm3 (4.2-5.4); White Blood Count 7.2 K/mm3 (4.4-11.0)
[2020-12-14 17:56] LABS: Vitamin D,25 Hydroxy 37.8 ng/mL
[2020-12-14 18:00] LABS: AST(SGOT) 24 U/L (15-37); Alanine Aminotransfer ALT/SGPT 21 U/L (13-56); Albumin, Serum 3.2 g/dL (3.2-5.0); Alkaline Phosphatase 91 U/L (45-117); Anion Gap 6 (5-15); BUN 27 mg/dL (7-18); BUN/Creat Ratio 26.2 RATIO (10-20); Calcium,Total 8.7 mg/dL (8.5-10.1); Chloride 101 mmol/L (98-107); Creatinine, Serum 1.03 mg/dL (0.55-1.02); EST Glomerular Filtration Rate 56 mL/min (>60); Est Glom Filt Rate - Afr Amer 67 mL/min (>60); Globulin 3.2 g/dL (2.2-4.2); Glucose 133 mg/dL (74-106); Potassium 3.6 mmol/L (3.5-5.1); Protein, Total 6.4 g/dL (6.4-8.2); Sodium Level 141 mmol/L (136-145); Thyroid Stim Hormone (TSH) 1.67 uIU/mL (0.358-3.74)
== END ==
PROVIDERS: PCP Family Medicine Geriatric Medicine; Visit Provider Family Medicine Geriatric Medicine
DX: I10 Essential (primary) hypertension (principal); E55.9 Vitamin D deficiency, unspecified
CPT/HCPCS: 36415; 80053; 82306; 84443; 85025

== ENCOUNTER → 2021-02-19 08:51 | Outpatient (CLI) | payer MEDICARE, SELFPAY ==
--- NOTE | 2021-02-19 08:57 | ECHOCS_ITS ---
Reason For Study: VALVULAR HEART DISEASE Procedure This was a 2D Doppler, Color Flow transthoracic echocardiogram. The study was technically difficult. Contrast injection was performed. Exam performed in department. Left Ventricle Normal LV size. Left ventricular systolic function is normal. The estimated ejection fraction is 65 %. No regional wall motion abnormalities noted. Right Ventricle Normal RV size. Normal systolic function. Atria Normal left atrium. Normal right atrium. Mitral Valve Normal mitral valve. Tricuspid Valve Normal tricuspid valve. Mild tricuspid valve insufficiency. Pulmonary artery systolic pressure is 30 mmHg. Aortic Valve The aortic valve is not well visualized. Pulmonic Valve Normal pulmonic valve. Great Vessels Normal aortic root. The pulmonary artery is normal size. Normal inferior vena cava. Pericardium/Pleural No pericardial effusion. Medication 22 gauge I.V. with prn adaptor inserted into right arm. Diluted definity 4.0ml given slow IV push to enhance endocardial definition. PREVIOUSLY NEGATIVE BUBBLE STIUDY. MMode/2D Measurements & Calculations LVIDd: 4.2 cm IVSd: 1.1 cm Ao root diam: 3.4 cm LVIDs: 2.6 cm LVPWd: 1.1 cm RVDd: 3.9 cm FS: 38.3 % LAV(MOD-bp): 47.3 ml LVAd ap4: 23.3 cm2 LVAd ap2: 27.6 cm2 LAV(MOD-bp) Indexed: 27.4 ml/m2 LVLd ap4: 7.0 cm LVLd ap2: 7.8 cm LAV(MOD-sp2): 44.2 ml EDV(MOD-sp4): 66.9 ml EDV(MOD-sp2): 84.8 ml LAV(MOD-sp4): 43.4 ml EDV(sp4-el): 66.3 ml EDV(sp2-el): 83.0 ml LVAs ap4: 13.9 cm2 LVAs ap2: 13.5 cm2 LVLs ap4: 5.9 cm LVLs ap2: 6.2 cm ESV(MOD-sp4): 27.5 ml ESV(MOD-sp2): 26.7 ml ESV(sp4-el): 27.8 ml ESV(sp2-el): 25.0 ml EF(MOD-sp4): 58.8 % EF(MOD-sp2): 68.5 % EF(sp4-el): 58.0 % SV(MOD-sp4): 39.3 ml SV(MOD-sp2): 58.1 ml SV(sp4-el): 38.4 ml LA A4 area: 17.0 cm2 LA dimension(2D): 3.7 cm RA A4 area: 13.5 cm2 Doppler Measurements & Calculations MV E max kane: 94.8 cm/sec Lat Peak E' Kane: 6.5 cm/sec Med Peak E' Kane: 4.3 cm/sec MV A max kane: 68.4 cm/sec E/E' lat: 14.5 E/E' med: 22.3 MV E/A: 1.4 Ao V2 max: 126.8 cm/sec LV V1 max: 97.8 cm/sec PA V2 max: 75.9 cm/sec Ao max P.4 mmHg LV V1 max P.8 mmHg PI end-d kane: 96.5 cm/sec TR max kane: 253.1 cm/sec TR max P.6 mmHg ECHO/Echo Complete W/ Contrast Interpretation Summary Normal LV size. Left ventricular systolic function is normal. The estimated ejection fraction is 65 %. Pulmonary artery systolic pressure is 30 mmHg. Contrast injection was performed. Ordering Physician: Nolberto Leblanc Referring Physician: TATI RETANA Performed By: Ernestina Ledezma RDCS, RVT
== END ==
PROVIDERS: PCP Family Medicine Geriatric Medicine; Referring Provider Internal Medicine Cardiovascular Disease; Visit Provider Internal Medicine Cardiovascular Disease
DX: I25.10 Atherosclerotic heart disease of native coronary artery without angina pectoris (principal)
CPT/HCPCS: 93306; Q9957; A4216; C8929

== ENCOUNTER 2021-06-14 13:11 | Outpatient (CLI) | payer MEDICARE, SELFPAY ==
[2021-06-14 17:49] LABS: Absolute Lymphocyte Count 1.79 X10^3/uL (0.83-4.51); Absolute Neutrophil Count 4.1 X10^3/uL (2.0-7.7); Basophil# 0.03 X10^3/uL; Basophil% 0.5 % (0-1); Eosinophil# 0.13 X10^3/uL; Hematocrit 43.6 % (37-47); Hemoglobin 14.2 g/dL (12.0-15.0); Lymphocyte # 1.79 X10^3/ul (0.83-4.51); Mean Corp Hgb Conc 32.6 g/dL (32-36); Mean Corpuscular Hgb 29.5 pg (27.0-32.0); Mean Corpuscular Volume 90.5 fL (81-99); Mean Platelet Vol. 10.7 fl (6.2-12.0); Monocyte# 0.53 X10^3/uL; NRBC Flagged by Analyzer 0 % (0-5); Neutrophil # 4.11 X10^3/uL (2.7-7.7); Platelet Count 290 K/mm3 (150-450); RBC Distribution Width CV 12.5 % (11.6-14.6); RBC Distribution Width SD 40.8 fl (35.1-43.9); Red Blood Count 4.82 M/mm3 (4.2-5.4); White Blood Count 6.6 K/mm3 (4.4-11.0)
[2021-06-14 18:16] LABS: ALB/GLOB Ratio 1.2 RATIO (0.9-2.4); AST(SGOT) 27 U/L (15-37); Alanine Aminotransfer ALT/SGPT 20 U/L (13-56); Albumin, Serum 3.6 g/dL (3.2-5.0); Alkaline Phosphatase 94 U/L (45-117); Anion Gap 5 (5-15); BUN 29 mg/dL (7-18); BUN/Creat Ratio 25.7 RATIO (10-20); Calcium,Total 8.4 mg/dL (8.5-10.1); Chloride 103 mmol/L (98-107); Creatinine, Serum 1.13 mg/dL (0.55-1.02); EST Glomerular Filtration Rate 50 mL/min (>60); Est Glom Filt Rate - Afr Amer 61 mL/min (>60); Globulin 3.1 g/dL (2.2-4.2); Glucose 98 mg/dL (74-106); Potassium 4.1 mmol/L (3.5-5.1); Protein, Total 6.7 g/dL (6.4-8.2); Sodium Level 141 mmol/L (136-145); Thyroid Stim Hormone (TSH) 2.04 uIU/mL (0.358-3.74); Vitamin D,25 Hydroxy 53.1 ng/mL
== END 2021-06-14 23:59 | disposition home or self-care (01) ==
LOC: POLAB3 13:11
PROVIDERS: PCP Family Medicine Geriatric Medicine; Visit Provider Family Medicine Geriatric Medicine
DX: E55.9 Vitamin D deficiency, unspecified (principal); I10 Essential (primary) hypertension
CPT/HCPCS: 36415; 80053; 82306; 84443; 85025

== ENCOUNTER → 2021-08-19 | Outpatient (CLI) | payer MEDICARE, SELFPAY ==
--- NOTE | 2021-08-19 12:45 | RAD_ITS ---
STUDY: X-RAY CHEST REASON FOR EXAM: Female, 76 years old. Chest pain TECHNIQUE: PA and lateral views of the chest. COMPARISON: Comparison is made with prior study dated 10/11/2019. FINDINGS: Hyperinflation. Stable calcified granuloma in the right lower lobe. Increased markings in the lingular segment of the left upper lobe suggestive of early infiltrate. There is no demonstrated pleural abnormality. Normal size heart. Normal mediastinum and basilia. Normal visualized pulmonary arteries. There is atherosclerotic calcification of the aortic arch with tortuosity. There are degenerative changes of the visualized thoracic spine. Normal visualized ribs, clavicles, and shoulders. There is no demonstrated abnormality of the visualized soft tissue structures of the upper abdomen. RAD/Chest PA and Lateral IMPRESSION: Findings suggestive of an early infiltrate in the lingular segment of the left upper lobe. Electronically Signed: Garret Lao MD at 13:29 EDT ,
[2021-08-19 13:21] LABS: Absolute Lymphocyte Count 1.48 X10^3/uL (0.83-4.51); Absolute Neutrophil Count 6.5 X10^3/uL (2.0-7.7); Basophil# 0.03 X10^3/uL; Basophil% 0.3 % (0-1); Eosinophil# 0.14 X10^3/uL; Eosinophils% 1.6 % (0-5); Hematocrit 40.6 % (37-47); Hemoglobin 13.1 g/dL (12.0-15.0); Lymphocyte # 1.48 X10^3/ul (0.83-4.51); Lymphocyte % 16.4 % (19-41); Mean Corp Hgb Conc 32.3 g/dL (32-36); Mean Corpuscular Hgb 29.1 pg (27.0-32.0); Mean Corpuscular Volume 90.2 fL (81-99); Mean Platelet Vol. 9.1 fl (6.2-12.0); Monocyte# 0.81 X10^3/uL; NRBC Flagged by Analyzer 0 % (0-5); Neutrophil # 6.52 X10^3/uL (2.7-7.7); Neutrophil % 72.1 % (47-70); Platelet Count 358 K/mm3 (150-450); RBC Distribution Width CV 11.8 % (11.6-14.6); RBC Distribution Width SD 38.9 fl (35.1-43.9)
[2021-08-19 13:41] LABS: Anion Gap 4 (5-15); BNP,B-Type NATRIURETIC PEPTIDE 185.2 pg/mL (0-100); BUN 18 mg/dL (7-18); BUN/Creat Ratio 15.8 RATIO (10-20); Chloride 102 mmol/L (98-107); Creatinine, Serum 1.14 mg/dL (0.55-1.02); EST Glomerular Filtration Rate 50 mL/min (>60); Est Glom Filt Rate - Afr Amer 60 mL/min (>60); Glucose 147 mg/dL (74-106); Potassium 3.7 mmol/L (3.5-5.1); Sodium Level 138 mmol/L (136-145)
== END | disposition home or self-care (01) ==
PROVIDERS: PCP Family Medicine Geriatric Medicine; Referring Provider Nurse Practitioner Family; Visit Provider Nurse Practitioner Family
DX: R07.9 Chest pain, unspecified (principal); I50.32 Chronic diastolic (congestive) heart failure; I11.0 Hypertensive heart disease with heart failure; I25.10 Atherosclerotic heart disease of native coronary artery without angina pectoris; E78.00 Pure hypercholesterolemia, unspecified
CPT/HCPCS: 36415; 71046; 80048; 83880; 85025

== ENCOUNTER → 2021-12-13 | Outpatient (CLI) | payer MEDICARE, SELFPAY | END | disposition home or self-care (01) | LOC: LAB.FUTURE 16:41 | PROVIDERS: PCP Family Medicine Geriatric Medicine; Visit Provider Family Medicine Geriatric Medicine | DX: E55.9 Vitamin D deficiency, unspecified (principal); I10 Essential (primary) hypertension ==

== ENCOUNTER 2021-12-27 13:55 | Emergency (ER) | payer MEDICARE, SELFPAY ==
[2021-12-27 13:56] VITALS: BP 146/86; PULSE 146; RESP 18; TEMP 36.7; O2SAT 95; BMI 22.3
--- NOTE | 2021-12-27 14:54 | EDS_ITS ---
HPI History of Present Illness Chief Complaint: Trauma Informant: patient Narrative Narrative: Patient states she was trying to wrangle her horse in and it got scared and kicked her in the nose. She denies any other injury. She states it hurt a lot immediately, but now it really does not hurt at all. She had immediately had epistaxis from the right side, she got that to stop, she takes baby aspirin no anticoagulants and she feels better now. She has had no changes in her vision or pain elsewhere in her face, no headache, no loss of consciousness. [facility] Medical History Anxiety and depression Arthritis Asthma Atherosclerosis of coronary artery without angina pectoris Chronic diastolic (congestive) heart failure COVID-19 virus detected (03/29/20) Essential (primary) hypertension Hypercholesterolemia Nonrheumatic mitral (valve) insufficiency Nonrheumatic mitral (valve) prolapse Radial head fracture (05/2019) Shoulder pain Home Medications montelukast 10 mg tablet 10 mg PO DAILY 02/12/20 [History Last Taken Unknown] venlafaxine 75 mg tablet 75 mg PO DAILY 02/12/20 [History Last Taken Unknown] trazodone 100 mg tablet 100 mg PO QHS 12/11/20 [History Last Taken Unknown] aspirin 81 mg tablet,delayed release (Adult Aspirin Regimen) 81 mg PO DAILY 08/19/21 [History Last Taken Unknown] fexofenadine 30 mg tablet 60 mg PO .PRN PRN 08/19/21 [History Last Taken Unknown] B-complex with vitamin C 1 cap PO DAILY 12/16/21 [History Last Taken Unknown] calcium carbonate 600 mg calcium (1,500 mg) tablet (Calcium) 600 mg PO DAILY 12/16/21 [History Last Taken Unknown] cholecalciferol (vitamin D3) 25 mcg (1,000 unit) capsule 25 mcg PO DAILY 12/16/21 [History Last Taken Unknown] coenzyme Q10 100 mg capsule (Co Q-10) 100 mg PO DAILY 12/16/21 [History Last Taken Unknown] furosemide 40 mg tablet (Lasix) 40 mg PO DAILY #90 tabs 12/16/21 [Rx Last Taken Unknown] metoprolol succinate 50 mg tablet,extended release 24 hr 50 mg PO DAILY #90 tabs 12/16/21 [Rx Last Taken Unknown] rosuvastatin 40 mg tablet 40 mg PO DAILY #90 tabs 12/16/21 [Rx Last Taken Unknown] Allergy/AdvReac Type Severity Reaction Status Date / Time sumatriptan [From Imitrex] Allergy Other Verified 12/27/21 13:55 sumatriptan succinate Allergy Other Verified 12/27/21 13:55 [From Imitrex] prednisone AdvReac Unknown Verified 12/27/21 13:55 Family History Father CAD (coronary artery disease) Myocardial infarction from [place] age 43 Hypertension Mother Hypertension Heart disease Brother Hypertension Other CVA (cerebral vascular accident) Cancer Surgical History History of bladder suspension procedure History of hysterectomy History of repair of rotator cuff History of right and left heart catheterization (11/28/16) History of tonsillectomy and adenoidectomy Social History Smoking Status: Former smoker pack-years: 22 how long ago did patient quit smokin alcohol intake: current Alcohol type: hard liquor details: bourbon-once a month substance use type: does not use caffeine: Yes Type: tea Number of servings: 4 ROS ROS ED Constitutional Constitutional ED: Denies chills or fever(s) Eyes Eyes: Denies change in vision or diplopia ENT ENT ED: Reports as per HPI and nasal trauma; Denies rhinorrhea or sore throat Cardiovascular Cardiovascular: Denies chest pain or palpitations Respiratory/Chest Respiratory/Chest: Denies cough or dyspnea Gastrointestinal Gastrointestinal: Denies abdominal pain, diarrhea, nausea or vomiting Genitourinary Genitourinary ED: Denies dysuria or hematuria Musculoskeletal Musculoskeletal: Denies back pain or neck pain Integumentary Denies abscess or rash Neurologic Neurologic: Denies headache(s), paresthesias or weakness Psychiatric Psychiatric: Denies anxiety or suicidal thoughts EXAM Physical Exam Const Vital Signs: 12/27/21 13:56 Temperature 98.0 F Temperature Source Temporal Pulse Rate 146 H Respiratory Rate 18 Blood Pressure 146/86 H Blood Pressure Mean 106 Pulse Ox 95 Positive well nourished and well developed General Appearance ED: well developed and NAD HEENT Reports moist mucous membranes HEENT Narrative: Trauma/contusion with a very superficial laceration no more than 0.25 cm at the right side of the nasal bone without injury to the punctum or the eye. No swelling dorsally or on the left side of the nose, no deformity. Evidence of recent nosebleed on the right no current bleeding, no septal hematoma or perforation. No other facial tenderness throughout the mid face or forehead or nasal bridge. normocephalic Eyes PERRL and EOMs intact bilaterally General Eye ED: Yes other Other Details: No ataxia or movements. No enophthalmos or proptosis. No signs of globe trauma. No eyelid injury. Neck full ROM and supple Resp normal respiratory effort Back/Spine General Back: other FROM Extremity normal to inspection General Extremety ED: Negative for edema or pulses abnormal General Extremity: Negative for edema or pulses abnormal Neuro oriented x3, CN's II-XII intact bilaterally and no sensory deficits noted Sensorium / Orientation: awake and alert Motor Exam: strength 5/5 throughout Skin no rashes or lesions noted MDM MDM MDM Narrative Medical decision making narrative: I reassured the patient, I do not think she needs any intervention here, and I think it would be reasonable to not x-ray this since it is not performed or diffusely swollen and have a low suspicion for fracture. I offered an x-ray either way. She declines, she also declines an offer for any analgesics, I had nurses clean the little georges in the skin, place a Band-Aid with bacitracin, she has an ice pack and states that is really helped, and declines even Tylenol. We discussed reasons to return and to deal with recurrent nosebleeds, she is comfortable with that plan. Discharge Plan Triage Chief Complaint: Trauma ED Provider: Lucas Funes Dx/Rx/DC Orders Clinical Impression: Injury of nose, Epistaxis due to trauma Instructions: ED NASAL CONTUSION vs FX No X-ray Prescriptions: No Action venlafaxine 75 mg tablet 75 mg PO DAILY Label Comments: TAKE 1 TABLET BY MOUTH TWICE DAILY FOR 30 DAYS montelukast 10 mg tablet 10 mg PO DAILY Label Comments: TAKE 1 TABLET BY MOUTH ONCE DAILY trazodone 100 mg tablet 100 mg PO QHS Label Comments: TAKE 1 TABLET BY MOUTH ONCE DAILY AT BEDTIME coenzyme Q10 [Co Q-10] 100 mg capsule 100 mg PO DAILY cholecalciferol (vitamin D3) 25 mcg (1,000 unit) capsule 25 mcg PO DAILY calcium carbonate [Calcium 600] 600 mg calcium (1,500 mg) tablet 600 mg PO DAILY B-complex with vitamin C Capsule 1 cap PO DAILY metoprolol succinate 50 mg tablet extended release 24 hr 50 mg PO DAILY Qty: 90 3RF rosuvastatin 40 mg tablet 40 mg PO DAILY Qty: 90 3RF furosemide [Lasix] 40 mg tablet 40 mg PO DAILY Qty: 90 3RF aspirin [Adult Aspirin Regimen] 81 mg tablet,delayed release (DR/EC) 81 mg PO DAILY fexofenadine 30 mg tablet 60 mg PO .PRN PRN Primary Care Provider: Bolivar Chaudhari Chi Referrals: Efe Richards MD [Med Staff - Active Staff] - As Needed (If the swelling goes down and your nose appears asymmetric) Bolivar Chaudhari Chi, MD [Primary Care Provider] - Activity Restrictions/Additional Instructions: For recurrent nosebleeds: Get any [id number] nasal decongestant spray containing oxymetazoline or phenylephrine. For moderate-severe nosebleed: 1 - gather supplies: nasal decongestant spray (above), cotton ball, box of tissues, garbage can, old towel that you can wrap around your chest/neck (to catch blood) 2 - soak a cotton ball in the nasal spray 3 - blow your nose, get all blood and clots out, keep chin down to prevent blood from going back into throat and forming clots 4 - after blowing the last time, quickly spray 2 sprays of the nasal spray into the affected side and sniff it back, immediately followed by twisting the soaked cotton ball into the front of your nose and then hold pressure with your fingers. 5 - if bleeding controlled, leave cotton ball in place for at least 20 min before checking to see if the bleeding is controlled by removing the cotton ball. If not able to control bleeding, always welcome to return to the ER for help. Disposition Disposition: Home, Self Care
[2021-12-27 15:07] VITALS: BP 135/88; PULSE 76; RESP 15; O2SAT 99
== END 2021-12-27 15:12 | disposition home or self-care (01) ==
PROVIDERS: Emergency Provider Emergency Medicine; PCP Family Medicine Geriatric Medicine; Visit Provider Emergency Medicine
DX: S09.92XA Unspecified injury of nose, initial encounter (principal); R04.0 Epistaxis; I25.10 Atherosclerotic heart disease of native coronary artery without angina pectoris; Z86.16 Personal history of COVID-19; Z87.891 Personal history of nicotine dependence; W55.12XA Struck by horse, initial encounter
CPT/HCPCS: 99282

== ENCOUNTER → 2022-03-23 | Outpatient (CLI) | payer OTHER, SELFPAY ==
[2022-03-23 12:43] LABS: Absolute Lymphocyte Count 1.73 X10^3/uL (0.83-4.51); Absolute Neutrophil Count 3.4 X10^3/uL (2.0-7.7); Basophil# 0.03 X10^3/uL; Basophil% 0.5 % (0-1); Eosinophil# 0.17 X10^3/uL; Eosinophils% 2.9 % (0-5); Hematocrit 45.4 % (37-47); Hemoglobin 14.9 g/dL (12.0-15.0); Lymphocyte # 1.73 X10^3/ul (0.83-4.51); Lymphocyte % 29.8 % (19-41); Mean Corp Hgb Conc 32.8 g/dL (32-36); Mean Corpuscular Hgb 29.6 pg (27.0-32.0); Mean Corpuscular Volume 90.3 fL (81-99); Mean Platelet Vol. 10.5 fl (6.2-12.0); Monocyte# 0.44 X10^3/uL; Monocyte% 7.6 % (0-10); NRBC Flagged by Analyzer 0.3 % (0-5); Neutrophil # 3.43 X10^3/uL (2.7-7.7); Platelet Count 262 K/mm3 (150-450); RBC Distribution Width CV 11.8 % (11.6-14.6); RBC Distribution Width SD 38.6 fl (35.1-43.9); Red Blood Count 5.03 M/mm3 (4.2-5.4); White Blood Count 5.8 K/mm3 (4.4-11.0)
[2022-03-23 13:04] LABS: ALB/GLOB Ratio 1.2 RATIO (0.9-2.4); AST(SGOT) 22 U/L (15-37); Alanine Aminotransfer ALT/SGPT 17 U/L (13-56); Albumin, Serum 3.6 g/dL (3.2-5.0); Alkaline Phosphatase 70 U/L (45-117); Anion Gap 7 (5-15); BUN 23 mg/dL (7-18); BUN/Creat Ratio 18.5 RATIO (10-20); Calcium,Total 9.2 mg/dL (8.5-10.1); Chloride 100 mmol/L (98-107); Creatinine, Serum 1.24 mg/dL (0.55-1.02); EST Glomerular Filtration Rate 45 mL/min (>60); Est Glom Filt Rate - Afr Amer 54 mL/min (>60); Glucose 118 mg/dL (74-106); Potassium 3.2 mmol/L (3.5-5.1); Protein, Total 6.6 g/dL (6.4-8.2); Sodium Level 139 mmol/L (136-145)
[2022-03-23 13:09] LABS: Vitamin D,25 Hydroxy 66.7 ng/mL
== END | disposition home or self-care (01) ==
LOC: POLAB3 10:19
PROVIDERS: PCP Family Medicine Geriatric Medicine; Visit Provider Family Medicine Geriatric Medicine
DX: I10 Essential (primary) hypertension (principal); E55.9 Vitamin D deficiency, unspecified
CPT/HCPCS: 36415; 80053; 82306; 84443; 85025

== ENCOUNTER → 2022-04-12 | Outpatient (CLI) | payer OTHER, SELFPAY ==
[2022-04-12 13:38] LABS: Anion Gap 8 (5-15); BUN 21 mg/dL (7-18); BUN/Creat Ratio 16.8 RATIO (10-20); Calcium,Total 9.3 mg/dL (8.5-10.1); Chloride 102 mmol/L (98-107); Creatinine, Serum 1.25 mg/dL (0.55-1.02); EST Glomerular Filtration Rate 44 mL/min (>60); Est Glom Filt Rate - Afr Amer 54 mL/min (>60); Glucose 95 mg/dL (74-106); Potassium 3.4 mmol/L (3.5-5.1); Sodium Level 143 mmol/L (136-145)
== END | disposition home or self-care (01) ==
LOC: POLAB3 11:33
PROVIDERS: PCP Family Medicine Geriatric Medicine; Visit Provider Family Medicine Geriatric Medicine
DX: I50.32 Chronic diastolic (congestive) heart failure (principal)
CPT/HCPCS: 36415; 80048

== ENCOUNTER → 2022-05-17 | Outpatient (CLI) | payer OTHER, SELFPAY ==
[2022-05-17 17:59] LABS: Protein, Urine (Random) 26.2 mg/dL (<11.9); Protein:Creat Ratio 167 mg/g CRE (0-200)
== END | disposition home or self-care (01) ==
LOC: POLAB3 13:37
PROVIDERS: PCP Family Medicine Geriatric Medicine; Visit Provider Internal Medicine Nephrology
DX: N18.32 Chronic kidney disease, stage 3b (principal)
CPT/HCPCS: 82570; 84156

== ENCOUNTER → 2022-05-20 | Outpatient (CLI) | payer MEDICARE, SELFPAY ==
--- NOTE | 2022-05-20 12:14 | US_ITS ---
STUDY: RENAL ULTRASOUND - COMPLETE REASON FOR EXAM: Female, 77 years old. Chronic kidney disease, stage IIIB. TECHNIQUE: Ultrasound evaluation of the kidneys was performed with real-time and static bautista-scale imaging. COMPARISON: None. FINDINGS: RIGHT KIDNEY: Normal location of the right kidney, which is normal in size. The right kidney measures 10.0 cm. There is a normal cortex of the right kidney. The renal cortex measures 1.5 cm. There is no right renal mass or cyst. There are no right renal calculi. There is no right hydronephrosis. DISTAL RIGHT URETER: There is non-visualization of the distal right ureter. There is no demonstrated right ureterovesical junction calculus. There is a visualized right ureteral jet. LEFT KIDNEY: Normal location of the left kidney, which is normal in size. The left kidney measures 10.0 cm. There is a normal cortex of the left kidney. The renal cortex measures 2.0 cm. There is no left renal mass or cyst. There are no left renal calculi. There is no left hydronephrosis. DISTAL LEFT URETER: There is non-visualization of the distal left ureter. There is no demonstrated left ureterovesical junction calculus. There is a visualized left ureteral jet. BLADDER: The distended urinary bladder has a volume of 535 ml. There is a normal wall thickness of the distended urinary bladder. There is no demonstrated mass within the urinary bladder. There are no demonstrated bladder calculi. US/Kidney and Bladder IMPRESSION: Normal ultrasound of the kidneys and urinary bladder. Electronically Signed: Geovany Bradford DO at 19:29 EST Reading Location ID and State: [facility] / [place] Tel [phone], Service support ,
== END | disposition home or self-care (01) ==
LOC: US 12:12
PROVIDERS: PCP Family Medicine Geriatric Medicine; Referring Provider Internal Medicine Nephrology; Visit Provider Internal Medicine Nephrology
DX: N18.32 Chronic kidney disease, stage 3b (principal)
CPT/HCPCS: 76770

== ENCOUNTER → 2022-06-22 | Outpatient (CLI) | payer MEDICARE, SELFPAY ==
[2022-06-22 18:07] LABS: Absolute Lymphocyte Count 1.56 X10^3/uL (0.83-4.51); Absolute Neutrophil Count 4.1 X10^3/uL (2.0-7.7); Basophil# 0.03 X10^3/uL; Basophil% 0.5 % (0-1); Eosinophil# 0.12 X10^3/uL; Eosinophils% 1.9 % (0-5); Hematocrit 42.8 % (37-47); Hemoglobin 13.9 g/dL (12.0-15.0); Lymphocyte # 1.56 X10^3/ul (0.83-4.51); Lymphocyte % 24.8 % (19-41); Mean Corp Hgb Conc 32.5 g/dL (32-36); Mean Corpuscular Hgb 30.3 pg (27.0-32.0); Mean Corpuscular Volume 93.2 fL (81-99); Mean Platelet Vol. 10.8 fl (6.2-12.0); Monocyte# 0.47 X10^3/uL; Monocyte% 7.5 % (0-10); NRBC Flagged by Analyzer 0 % (0-5); Neutrophil # 4.11 X10^3/uL (2.7-7.7); Neutrophil % 65.1 % (47-70); Platelet Count 262 K/mm3 (150-450); RBC Distribution Width CV 11.5 % (11.6-14.6); RBC Distribution Width SD 39.4 fl (35.1-43.9); Red Blood Count 4.59 M/mm3 (4.2-5.4); White Blood Count 6.3 K/mm3 (4.4-11.0)
[2022-06-22 18:26] LABS: Vitamin D,25 Hydroxy 97.8 ng/mL
[2022-06-22 18:29] LABS: ALB/GLOB Ratio 1.3 RATIO (0.9-2.4); AST(SGOT) 20 U/L (15-37); Alanine Aminotransfer ALT/SGPT 20 U/L (13-56); Albumin, Serum 3.6 g/dL (3.2-5.0); Alkaline Phosphatase 78 U/L (45-117); Anion Gap 8 (5-15); BUN 26 mg/dL (7-18); BUN/Creat Ratio 18.8 RATIO (10-20); Calcium,Total 8.9 mg/dL (8.5-10.1); Chloride 99 mmol/L (98-107); Creatinine, Serum 1.38 mg/dL (0.55-1.02); EST Glomerular Filtration Rate 40 mL/min (>60); Est Glom Filt Rate - Afr Amer 48 mL/min (>60); Globulin 2.8 g/dL (2.2-4.2); Glucose 203 mg/dL (74-106); Potassium 3.7 mmol/L (3.5-5.1); Protein, Total 6.4 g/dL (6.4-8.2); Sodium Level 134 mmol/L (136-145); Thyroid Stim Hormone (TSH) 1.37 uIU/mL (0.358-3.74)
== END | disposition home or self-care (01) ==
LOC: POLAB3 14:08
PROVIDERS: PCP Family Medicine Geriatric Medicine; Visit Provider Family Medicine Geriatric Medicine
DX: E55.9 Vitamin D deficiency, unspecified (principal); I10 Essential (primary) hypertension
CPT/HCPCS: 36415; 80053; 82306; 84443; 85025

== ENCOUNTER → 2022-07-18 | Outpatient (CLI) | payer MEDICARE, SELFPAY ==
[2022-07-18 13:29] LABS: Albumin, Serum 3.5 g/dL (3.2-5.0); BUN 20 mg/dL (7-18); BUN/Creat Ratio 16.9 RATIO (10-20); Calcium,Total 9.2 mg/dL (8.5-10.1); Chloride 105 mmol/L (98-107); Creatinine, Serum 1.18 mg/dL (0.55-1.02); EST Glomerular Filtration Rate 47 mL/min (>60); Est Glom Filt Rate - Afr Amer 57 mL/min (>60); Glucose 103 mg/dL (74-106); Phosphorus 3.7 mg/dL (2.5-4.9); Sodium Level 139 mmol/L (136-145)
== END | disposition home or self-care (01) ==
LOC: POLAB3 11:18
PROVIDERS: PCP Family Medicine Geriatric Medicine; Visit Provider Internal Medicine Nephrology
DX: N18.32 Chronic kidney disease, stage 3b (principal)
CPT/HCPCS: 36415; 80069; 83970

== ENCOUNTER → 2022-12-29 | Outpatient (CLI) | payer MEDICARE, SELFPAY ==
[2022-12-29 15:19] LABS: Absolute Lymphocyte Count 1.62 X10^3/uL (0.83-4.51); Absolute Neutrophil Count 2.9 X10^3/uL (2.0-7.7); Basophil# 0.04 X10^3/uL; Basophil% 0.8 % (0-1); Eosinophil# 0.18 X10^3/uL; Eosinophils% 3.6 % (0-5); Hematocrit 43.6 % (37-47); Hemoglobin 13.9 g/dL (12.0-15.0); Lymphocyte # 1.62 X10^3/ul (0.83-4.51); Lymphocyte % 32.1 % (19-41); Mean Corp Hgb Conc 31.9 g/dL (32-36); Mean Corpuscular Volume 90.8 fL (81-99); Mean Platelet Vol. 10.4 fl (6.2-12.0); Monocyte# 0.33 X10^3/uL; Monocyte% 6.5 % (0-10); NRBC Flagged by Analyzer 0 % (0-5); Neutrophil # 2.86 X10^3/uL (2.7-7.7); Neutrophil % 56.8 % (47-70); Platelet Count 249 K/mm3 (150-450); RBC Distribution Width CV 12.7 % (11.6-14.6); RBC Distribution Width SD 42.3 fl (35.1-43.9)
[2022-12-29 15:49] LABS: BNP,B-Type NATRIURETIC PEPTIDE 155.1 pg/mL (0-100)
[2022-12-29 16:00] LABS: Vitamin D,25 Hydroxy 72.6 ng/mL
[2022-12-29 16:21] LABS: AST(SGOT) 20 U/L (15-37); Alanine Aminotransfer ALT/SGPT 17 U/L (13-56); Albumin, Serum 3.2 g/dL (3.2-5.0); Alkaline Phosphatase 91 U/L (45-117); Anion Gap 7 (5-15); BUN 16 mg/dL (7-18); BUN/Creat Ratio 14.7 RATIO (10-20); Calcium,Total 8.9 mg/dL (8.5-10.1); Chloride 102 mmol/L (98-107); Creatinine, Serum 1.09 mg/dL (0.55-1.02); EST Glomerular Filtration Rate 52 mL/min (>60); Est Glom Filt Rate - Afr Amer 63 mL/min (>60); Globulin 3.1 g/dL (2.2-4.2); Glucose 177 mg/dL (74-106); Phosphorus 3.1 mg/dL (2.5-4.9); Potassium 3.6 mmol/L (3.5-5.1); Protein, Total 6.3 g/dL (6.4-8.2); Sodium Level 139 mmol/L (136-145); Thyroid Stim Hormone (TSH) 1.86 uIU/mL (0.358-3.74)
== END | disposition home or self-care (01) ==
LOC: POLAB3 14:11
PROVIDERS: Nurse Practitioner Family; PCP Family Medicine Geriatric Medicine; Visit Provider Family Medicine Geriatric Medicine
DX: I11.0 Hypertensive heart disease with heart failure (principal); I50.32 Chronic diastolic (congestive) heart failure; E55.9 Vitamin D deficiency, unspecified; I34.0 Nonrheumatic mitral (valve) insufficiency; R06.00 Dyspnea, unspecified
CPT/HCPCS: 80053; 82306; 83880; 84100; 84443; 85025

== ENCOUNTER → 2023-02-06 | Outpatient (CLI) | payer MEDICARE, SELFPAY ==
--- NOTE | 2023-02-06 13:03 | ECHOD_ITS ---
Reason For Study: DYSPNEA Procedure This was a 2D Doppler, Color Flow transthoracic echocardiogram. Exam performed in department. Left Ventricle Normal LV size. Left ventricular systolic function is normal. The estimated ejection fraction is 60 %. No regional wall motion abnormalities noted. Right Ventricle Normal RV size. Normal systolic function. Atria Normal left atrium. Normal right atrium. Mitral Valve Normal mitral valve. Tricuspid Valve Normal tricuspid valve. Mild tricuspid valve insufficiency. Pulmonary artery systolic pressure is 28 mmHg. Aortic Valve Trisinus/trileaflet aortic valve. Pulmonic Valve Normal pulmonic valve. Great Vessels Normal aortic root. The pulmonary artery is normal size. Normal inferior vena cava. Pericardium/Pleural No pericardial effusion. MMode/2D Measurements & Calculations LVIDd: 4.8 cm IVSd: 0.94 cm Ao root diam: 3.3 cm LVIDs: 3.1 cm LVPWd: 0.89 cm RVDd: 3.2 cm FS: 35.4 % LAV(MOD-bp): 62.2 ml EDV(MOD-sp4): 70.4 ml EDV(MOD-sp2): 67.6 ml LAV(MOD-bp) Indexed: 38.0 ml/m2 ESV(MOD-sp4): 19.4 ml ESV(MOD-sp2): 20.6 ml LAV(MOD-sp2): 57.3 ml EF(MOD-sp4): 72.4 % EF(MOD-sp2): 69.5 % LAV(MOD-sp4): 50.6 ml SV(MOD-sp4): 50.9 ml SV(MOD-sp2): 47.0 ml LA A4 area: 17.4 cm2 LA dimension(2D): 3.9 cm TAPSE: 2.2 cm RA A4 area: 12.4 cm2 Time Measurements MV dec time: 0.24 sec Doppler Measurements & Calculations MV E max kane: 71.1 cm/sec Lat Peak E' Kane: 8.1 cm/sec Med Peak E' Kane: 7.8 cm/sec MV A max kane: 67.3 cm/sec E/E' lat: 8.8 E/E' med: 9.1 MV E/A: 1.1 MV V2 max: 75.9 cm/sec MV P1/2t max kane: 73.6 cm/sec Ao V2 max: 132.0 cm/sec MV max P.3 mmHg MV P1/2t: 70.3 msec Ao max P.0 mmHg MV V2 mean: 43.1 cm/sec MV dec slope: 307.0 cm/sec2 Ao V2 mean: 88.5 cm/sec MV mean P.88 mmHg Ao mean P.6 mmHg MV V2 VTI: 21.0 cm MVA(P1/2t): 3.1 cm2 Ao V2 VTI: 29.0 cm AV (velocity ratio): 0.91 LV V1 max: 110.6 cm/sec PA V2 max: 79.8 cm/sec TR max kane: 242.7 cm/sec LV V1 max P.9 mmHg PA V2 mean: 50.5 cm/sec TR max P.6 mmHg LV V1 mean P.7 mmHg LV V1 mean: 78.3 cm/sec LV V1 VTI: 26.5 cm ECHO/Echo Complete Interpretation Summary Normal LV size. Left ventricular systolic function is normal. The estimated ejection fraction is 60 %. Pulmonary artery systolic pressure is 28 mmHg. Structurally normal valves. Ordering Physician: Quentin Sparks Referring Physician: Bolivar Chaudhari Chi Performed By: Emily Schofield, RDCS, RVT
== END | disposition home or self-care (01) ==
LOC: CVS 13:01
PROVIDERS: PCP Family Medicine Geriatric Medicine; Referring Provider Nurse Practitioner Family; Visit Provider Nurse Practitioner Family
DX: R06.00 Dyspnea, unspecified (principal)
CPT/HCPCS: 93306

== ENCOUNTER → 2023-07-03 | Outpatient (CLI) | payer MEDICARE, SELFPAY ==
[2023-07-03 16:19] LABS: Absolute Lymphocyte Count 1.89 X10^3/uL (0.83-4.51); Absolute Neutrophil Count 3.2 X10^3/uL (2.0-7.7); Basophil# 0.03 X10^3/uL; Basophil% 0.5 % (0-1); Eosinophils% 1.7 % (0-5); Hematocrit 44.4 % (37-47); Hemoglobin 14.7 g/dL (12.0-15.0); Lymphocyte # 1.89 X10^3/ul (0.83-4.51); Lymphocyte % 32.9 % (19-41); Mean Corp Hgb Conc 33.1 g/dL (32-36); Mean Corpuscular Hgb 29.9 pg (27.0-32.0); Mean Corpuscular Volume 90.4 fL (81-99); Mean Platelet Vol. 10.8 fl (6.2-12.0); Monocyte# 0.49 X10^3/uL; Monocyte% 8.5 % (0-10); NRBC Flagged by Analyzer 0 % (0-5); Neutrophil # 3.22 X10^3/uL (2.7-7.7); Neutrophil % 56.1 % (47-70); Platelet Count 238 K/mm3 (150-450); RBC Distribution Width CV 11.9 % (11.6-14.6); RBC Distribution Width SD 39.7 fl (35.1-43.9); Red Blood Count 4.91 M/mm3 (4.2-5.4); White Blood Count 5.8 K/mm3 (4.4-11.0)
[2023-07-03 16:34] LABS: Vitamin D,25 Hydroxy 58.7 ng/mL
[2023-07-03 16:41] LABS: ALB/GLOB Ratio 1.3 RATIO (0.9-2.4); AST(SGOT) 27 U/L (15-37); Alanine Aminotransfer ALT/SGPT 15 U/L (13-56); Albumin, Serum 3.7 g/dL (3.2-5.0); Alkaline Phosphatase 91 U/L (45-117); Anion Gap 4 (5-15); BUN 26 mg/dL (7-18); Calcium,Total 9.1 mg/dL (8.5-10.1); Chloride 104 mmol/L (98-107); Cholesterol 137 mg/dL (200); Creatinine, Serum 1.24 mg/dL (0.55-1.02); EST Glomerular Filtration Rate 45 mL/min (>60); Est Glom Filt Rate - Afr Amer 54 mL/min (>60); Globulin 2.9 g/dL (2.2-4.2); Glucose 110 mg/dL (74-106); High Density Lipoprotein 64 mg/dL; Protein, Total 6.6 g/dL (6.4-8.2); Sodium Level 137 mmol/L (136-145); Thyroid Stim Hormone (TSH) 1.91 uIU/mL (0.358-3.74); Triglycerides 44 mg/dL; Very Low Density Lipoprotein 9 mg/dL (5-40)
== END | disposition home or self-care (01) ==
LOC: POLAB3 15:07
PROVIDERS: PCP Family Medicine Geriatric Medicine; Visit Provider Family Medicine Geriatric Medicine
DX: I10 Essential (primary) hypertension (principal); E78.5 Hyperlipidemia, unspecified; E55.9 Vitamin D deficiency, unspecified
CPT/HCPCS: 36415; 80053; 80061; 82306; 84443; 85025

== ENCOUNTER → 2023-07-13 | Outpatient (CLI) | payer MEDICARE, SELFPAY | END | disposition home or self-care (01) | LOC: LABSPEC 16:25 | PROVIDERS: PCP Family Medicine Geriatric Medicine; Visit Provider Family Medicine Geriatric Medicine | DX: R63.4 Abnormal weight loss (principal) | CPT/HCPCS: 82274 ==

== ENCOUNTER → 2023-07-14 | Outpatient (CLI) | payer MEDICARE, SELFPAY ==
--- NOTE | 2023-07-14 14:20 | CT_ITS ---
STUDY: CT CHEST, ABDOMEN T PELVIS WITH CONTRAST REASON FOR EXAM: Female, 78 years old. 20 pound weight loss over 18 months. RADIATION DOSAGE (If Supplied By Facility): CTDIvol = ( 9.36 ) mGy, DLP = ( 536.00 ) mGycm TECHNIQUE: Transaxial imaging was performed following intravenous administration of Oral and amp;amp;amp; IV Readi-CAT and amp;amp;amp; 100mL Isovue-300. Multiplanar coronal and sagittal images were reformatted. Individualized dose optimization techniques were used for this CT. COMPARISON: No relevant priors. FINDINGS: CHEST There is a 1.9 cm x 1.1 cm solid nodule in the upper pole of the right lobe of the thyroid. Calcified granuloma in the peripheral lateral aspect of the right lower lobe. There is no demonstrated pleural abnormality. Normal heart and pericardium. There are calcifications of the coronary arteries. Normal mediastinum. Normal hilar regions. Normal unenhanced pulmonary arteries. There is atherosclerotic calcification of the aortic arch. There are mild degenerative changes of the thoracic spine. Calcified splenic granulomas. ABDOMEN There is decreased attenuation of the liver consistent with steatosis. Normal gallbladder and extrahepatic biliary system. There are multiple benign calcified granulomata of the spleen. Normal pancreas. Normal bilateral adrenal glands. Normal right kidney. Normal left kidney. Normal visualized stomach. Normal small intestine. Large amount of fecal material is seen throughout the colon. Sigmoid diverticulosis. The appendix is visualized and appears normal. There is diffuse atherosclerotic calcification of the abdominal aorta, without a demonstrated aneurysm. Normal inferior vena cava. Normal retroperitoneum. PELVIS Normal urinary bladder. Prior hysterectomy. There is no pelvic fluid. There is no pelvic lymphadenopathy or mass lesion. There is diffuse atherosclerotic calcification of the pelvic arteries. Normal abdominal wall. There are mild degenerative changes of the visualized lumbar spine. CT/CT Chest, Abd, Pel w/Contrast IMPRESSION: Sigmoid diverticulosis. Fatty infiltration of the liver. Large amount of fecal material is seen throughout the colon. Status post hysterectomy. Electronically Signed: Garret Lao MD at 14:53 EDT ,
== END | disposition home or self-care (01) ==
LOC: CT 14:19
PROVIDERS: PCP Family Medicine Geriatric Medicine; Referring Provider Family Medicine Geriatric Medicine; Visit Provider Family Medicine Geriatric Medicine
DX: R63.4 Abnormal weight loss (principal)
CPT/HCPCS: 71260; 74177; Q9967

== ENCOUNTER → 2023-07-25 | Outpatient (CLI) | payer MEDICARE, SELFPAY ==
--- NOTE | 2023-07-25 11:03 | US_ITS ---
INDICATION: NODULE EXAMINATION: Ultrasound US Thyroid (eg thyroid, parathyroid, parotid) TECHNIQUE: Noland scale and color doppler imaging was performed of the thyroid gland. COMPARISON: CT July 14, 2023. FINDINGS: RIGHT THYROID LOBE: 4.2 x 1.1 x 1.2 cm. Homogeneous echotexture with normal vascularity. [Central thyroid 2 x 2 x 1 mm mostly anechoic oval colloid cyst with small focal inspissated colloid, TI-RADS 1. LEFT THYROID LOBE: 1 3 x 1.3 x 0.9 cm. Homogeneous echotexture with normal vascularity. [No thyroid nodules are present. ISTHMUS: 0.2. No thyroid nodules are present. US/Thyroid IMPRESSION: 2 mm right thyroid benign colloid cyst. No imaging follow-up is recommended. No suspicious thyroid nodule or parathyroid nodule is appreciated. Comparison CT finding appears to represent right Jugular vein with mixing artifact. Electronically Signed: Thierry Jackson MD at 2:20 EDT ,
== END | disposition home or self-care (01) ==
LOC: US 11:01
PROVIDERS: PCP Family Medicine Geriatric Medicine; Referring Provider Family Medicine Geriatric Medicine; Visit Provider Family Medicine Geriatric Medicine
DX: E04.1 Nontoxic single thyroid nodule (principal)
CPT/HCPCS: 76536

== ENCOUNTER → 2023-12-27 | Outpatient (CLI) | payer MEDICARE, SELFPAY ==
[2023-12-27 11:25] LABS: Absolute Lymphocyte Count 1.58 X10^3/uL (0.83-4.51); Absolute Neutrophil Count 3.4 X10^3/uL (2.0-7.7); Basophil# 0.04 X10^3/uL; Basophil% 0.7 % (0-1); Eosinophil# 0.16 X10^3/uL; Eosinophils% 2.9 % (0-5); Hematocrit 46.3 % (37-47); Hemoglobin 14.7 g/dL (12.0-15.0); Lymphocyte # 1.58 X10^3/ul (0.83-4.51); Lymphocyte % 28.2 % (19-41); Mean Corp Hgb Conc 31.7 g/dL (32-36); Mean Corpuscular Hgb 29.1 pg (27.0-32.0); Mean Corpuscular Volume 91.7 fL (81-99); Mean Platelet Vol. 10.4 fl (6.2-12.0); Monocyte# 0.44 X10^3/uL; Monocyte% 7.8 % (0-10); NRBC Flagged by Analyzer 0 % (0-5); Neutrophil # 3.38 X10^3/uL (2.7-7.7); Neutrophil % 60.2 % (47-70); Platelet Count 250 K/mm3 (150-450); RBC Distribution Width CV 12.1 % (11.6-14.6); Red Blood Count 5.05 M/mm3 (4.2-5.4); White Blood Count 5.6 K/mm3 (4.4-11.0)
[2023-12-27 12:08] LABS: ALB/GLOB Ratio 1.2 RATIO (0.9-2.4); AST(SGOT) 23 U/L (15-37); Alanine Aminotransfer ALT/SGPT 13 U/L (13-56); Albumin, Serum 3.7 g/dL (3.2-5.0); Alkaline Phosphatase 98 U/L (45-117); Anion Gap 4 (5-15); BUN 22 mg/dL (7-18); BUN/Creat Ratio 22.2 RATIO (10-20); Chloride 106 mmol/L (98-107); Cholesterol 178 mg/dL (200); Creatinine, Serum 0.99 mg/dL (0.55-1.02); EST Glomerular Filtration Rate 58 mL/min (>60); Est Glom Filt Rate - Afr Amer 70 mL/min (>60); Glucose 103 mg/dL (74-106); High Density Lipoprotein 75 mg/dL; Potassium 3.8 mmol/L (3.5-5.1); Protein, Total 6.7 g/dL (6.4-8.2); Sodium Level 141 mmol/L (136-145); Triglycerides 124 mg/dL; Very Low Density Lipoprotein 25 mg/dL (5-40)
== END | disposition home or self-care (01) ==
LOC: POLAB3 10:48
PROVIDERS: PCP Family Medicine Geriatric Medicine; Visit Provider Family Medicine Geriatric Medicine
DX: E78.5 Hyperlipidemia, unspecified (principal); E55.9 Vitamin D deficiency, unspecified; I10 Essential (primary) hypertension
CPT/HCPCS: 36415; 80053; 80061; 82306; 84443; 85025

== ENCOUNTER → 2024-07-03 | Outpatient (CLI) | payer MEDICARE, SELFPAY ==
[2024-07-03 12:59] LABS: Absolute Lymphocyte Count 1.47 X10^3/uL (0.83-4.51); Absolute Neutrophil Count 3.7 X10^3/uL (2.0-7.7); Basophil# 0.02 X10^3/uL; Basophil% 0.4 % (0-1); Eosinophils% 1.8 % (0-5); Hematocrit 46.1 % (37-47); Hemoglobin 14.9 g/dL (12.0-15.0); Lymphocyte # 1.47 X10^3/ul (0.83-4.51); Mean Corp Hgb Conc 32.3 g/dL (32-36); Mean Corpuscular Hgb 29.7 pg (27.0-32.0); Mean Platelet Vol. 10.6 fl (6.2-12.0); Monocyte# 0.37 X10^3/uL; Monocyte% 6.5 % (0-10); NRBC Flagged by Analyzer 0 % (0-5); Neutrophil # 3.68 X10^3/uL (2.7-7.7); Neutrophil % 64.9 % (47-70); Platelet Count 245 K/mm3 (150-450); RBC Distribution Width CV 12.1 % (11.6-14.6); RBC Distribution Width SD 40.9 fl (35.1-43.9); Red Blood Count 5.01 M/mm3 (4.2-5.4); White Blood Count 5.7 K/mm3 (4.4-11.0)
[2024-07-03 13:49] LABS: ALB/GLOB Ratio 1.6 RATIO (0.9-2.4); AST(SGOT) 42 U/L (<=31); Alanine Aminotransfer ALT/SGPT 17 U/L (<=34); Albumin, Serum 4.2 g/dL (3.4-4.8); Alkaline Phosphatase 103 U/L (35-104); Anion Gap 11 (5-15); BUN 25 mg/dL (4-19); BUN/Creat Ratio 22.9 RATIO (10-20); Calcium,Total 9.2 mg/dL (7.6-11.0); Carbon Dioxide 26.9 mmol/L (21.0-32.0); Chloride 104 mmol/L (98-108); Creatinine, Serum 1.08 mg/dL (0.70-1.20); EST Glomerular Filtration Rate 53 (>60); Globulin 2.5 g/dL (2.2-4.2); Glucose 98 mg/dL (70-99); Potassium 4.2 mmol/L (3.3-5.1); Protein, Total 6.7 g/dL (5.9-8.4); Sodium Level 141 mmol/L (133-145)
== END | disposition home or self-care (01) ==
PROVIDERS: PCP Family Medicine Geriatric Medicine; Referring Provider Family Medicine Geriatric Medicine; Visit Provider Family Medicine Geriatric Medicine
DX: I10 Essential (primary) hypertension (principal); E55.9 Vitamin D deficiency, unspecified
CPT/HCPCS: 36415; 80053; 82306; 84443; 85025

== ENCOUNTER → 2024-09-16 | Outpatient (CLI) | payer MEDICARE, SELFPAY | END | disposition home or self-care (01) | LOC: OPBI 15:27 | PROVIDERS: PCP Family Medicine Geriatric Medicine; Referring Provider Family Medicine Geriatric Medicine; Visit Provider Family Medicine Geriatric Medicine | DX: Z12.31 Encounter for screening mammogram for malignant neoplasm of breast (principal) | CPT/HCPCS: 77063; 77067 ==

== ENCOUNTER → 2025-01-01 | Outpatient (CLI) | payer MEDICARE, SELFPAY ==
[2025-01-01 11:10] LABS: Hematocrit 46.6 % (37-47); Hemoglobin 15.4 g/dL (12.0-15.0); Immature Granulocytes Count 0.010 X10^3/uL (0.0-0.0); Mean Corp Hgb Conc 33.0 g/dL (32-36); Mean Corpuscular Volume 88.8 fL (81-99); Mean Platelet Vol. 9.6 fl (6.2-12.0); NRBC Flagged by Analyzer 0 % (0-5); Platelet Count 269 K/mm3 (150-450); RBC Distribution Width CV 11.6 % (11.6-14.6); RBC Distribution Width SD 37.1 fl (35.1-43.9); Red Blood Count 5.25 M/mm3 (4.2-5.4); White Blood Count 4.7 K/mm3 (4.4-11.0)
[2025-01-01 12:19] LABS: AST(SGOT) 32 U/L (<=31); Alanine Aminotransfer ALT/SGPT 15 U/L (<=34); Albumin, Serum 4.1 g/dL (3.4-4.8); Alkaline Phosphatase 88 U/L (35-104); Anion Gap 9 (5-15); BUN 23 mg/dL (4-19); BUN/Creat Ratio 20.1 RATIO (10-20); Calcium,Total 9.6 mg/dL (7.6-11.0); Carbon Dioxide 32.7 mmol/L (21.0-32.0); Chloride 100 mmol/L (98-108); Globulin 2.5 g/dL (2.2-4.2); Glucose 121 mg/dL (70-99); Potassium 3.9 mmol/L (3.3-5.1); Vitamin D,25 Hydroxy 90.9 ng/mL (30-100)
[2025-01-01 18:52] LABS: Xtra Tube Kwok EXTRA TUBE
== END | disposition home or self-care (01) ==
LOC: POLAB3 10:51
PROVIDERS: PCP Family Medicine Geriatric Medicine; Visit Provider Family Medicine Geriatric Medicine
DX: I10 Essential (primary) hypertension (principal); E55.9 Vitamin D deficiency, unspecified
CPT/HCPCS: 36415; 80053; 82306; 84443; 85025